=== PATIENT | male | born 1970 | race Caucasian/White ===

== ENCOUNTER 2017-01-09 19:04 | Observation (INO) | payer BC ==
[~2017-01-09] VITALS: Ht 198.1 cm; Wt 104.2 kg
[~2017-01-09 19:04] MED LIST: CRF1 PO; CYAN3INJ; FLV1; FLX10 PO; LANS30CA12; PNT250; RMCI; [UNRECOGNIZED DRUG - OTHER]
[2017-01-09] MEDS ORDERED: SODIUM CHLORIDE 0.9% 1000ML 1,000 ML IV STA (19:17)
[2017-01-09] MEDS ORDERED: ACETAMINOPHEN 500 MG TAB PO STA (19:30)
[2017-01-09] MEDS ORDERED: ONDANSETRON 8 MG/54 ML D5W IV STA (19:30)
[2017-01-09 19:36] LABS: URINE APPEARANCE CLEAR (CLEAR); URINE BILIRUBIN NEG (NEG); URINE COLOR YELLOW; URINE NITRITE NEG (NEG); URINE SPECIFIC GRAVITY 1.025 (1.000-1.030); UROBILINOGEN NEG (NEG); ZZUR CULT IF INDIC CLEAN CATCH NO
[2017-01-09 19:37] LABS: BASO % 0.1 %; BASO ABS # 0.01 K/uL (0-0.2); COMPLETE YES; EOS % 5.3 %; HEMATOCRIT 41.2 % (42-52); IG% 0.2 %; LYMPH % 11.5 %; LYMPH ABS # 1.12 K/uL (1.2-3.4); MEAN CELL VOLUME 81.3 fL (80-100); MEAN CORPUSCULAR HEMOGLOBIN 27.8 pg (25-34); MEAN CORPUSCULAR HGB CONC 34.2 g/dl (32-36); MEAN PLATELET VOLUME 9.8 fL (7.4-10.4); MONO % 4.5 %; NEUT % 78.4 %; PLATELET COUNT 236 K/uL (130-400); RED BLOOD COUNT 5.07 M/uL (4.7-6.1); WHITE BLOOD COUNT 9.73 K/uL (4.8-10.8)
[2017-01-09 19:39] LABS: MANUAL MICROSCOPIC REQUIRED? NO; REVIEW REQ? NO
[2017-01-09] MEDS: HYDROmorphone INJ 1 MG/ML SYR IV PRN ×2 (19:40→20:56)
[2017-01-09] MEDS ORDERED: RANI300T2 PO (19:59)
[2017-01-09] MEDS ORDERED: CYNI1000 INJ (19:59)
[2017-01-09] MEDS ORDERED: PNT500 PO (19:59)
[2017-01-09] MEDS ORDERED: ZOLP10TA PO (19:59)
[2017-01-09] MEDS ORDERED: FLV1 (19:59)
[2017-01-09] MEDS ORDERED: COLE1TAB PO (19:59)
[2017-01-09] MEDS ORDERED: BUDE1CAP6 PO (19:59)
[2017-01-09] MEDS ORDERED: CYCL10TA6 PO (19:59)
[2017-01-09] MEDS ORDERED: LANS30CA12 PO (19:59)
[2017-01-09] MEDS ORDERED: RMCI IN (19:59)
[2017-01-09] MEDS ORDERED: LOSA1TAB38 PO (19:59)
[2017-01-09] MEDS ORDERED: DOCU-94 PO (19:59)
[2017-01-09] MEDS ORDERED: DICY10CA55 PO (19:59)
[2017-01-09 20:02] LABS: BUN/CREATININE RATIO 18.8 (10-20); CALCIUM 8.6 mg/dl (8.5-10.1); CREATININE 1.1 mg/dl (0.60-1.40); POTASSIUM 3.6 mmol/L (3.5-5.1)
--- NOTE | 2017-01-09 20:27 | DIAGNOSTIC IMAGING REPORT ---
CT OF THE ABDOMEN AND PELVIS WITHOUT CONTRAST CLINICAL HISTORY: Left lower quadrant pain, fever and vomiting. Crohn's disease. COMPARISON STUDY: CT of the abdomen and pelvis July 20, 2007 and MR enterography August 20, 2016. TECHNIQUE: Axial images of the abdomen and pelvis were obtained without IV contrast. Images were reviewed in the axial, sagittal, and coronal planes. FINDINGS: Visualized portions of the ascending aorta demonstrate mild dilatation, measuring up to 4.2 cm. Evaluation of the abdomen and pelvis is suboptimal on this unenhanced exam. Unenhanced images of the liver, spleen, adrenal glands, left kidney and pancreas are normal. 2 water attenuation right renal lesions were shown to reflect cysts on prior MRI. There are stable post operative findings consistent with a right hemicolectomy. A gas and fluid containing bowel loop within the mid abdomen is at the anastomosis. There is no evidence for a bowel obstruction. There is no ascites. No abscess is present. There is no pneumatosis, free air or portal venous gas. No suspicious osseous lesions are present. IMPRESSION: 1. No acute process within the abdomen or pelvis on unenhanced exam. 2. Status post right hemicolectomy. No bowel obstruction. No bowel wall thickening identified. 3. Mild dilatation of visualized portions of the ascending aorta, measuring 4.2 cm. 4. Two right renal cysts. Electronically signed by: Jesús Campos M.D. 01/09/2017 8:26 PM Dictated Date/Time: 01/09/2017 8:17 PM
[2017-01-09] MEDS ORDERED: ONDANSETRON INJ 2 MG/ML 2 ML VIAL IV PRN (22:00)
[2017-01-09] MEDS ORDERED: ZOLPIDEM TARTRATE 5 MG TAB PO PRN (22:00)
[2017-01-09] MEDS ORDERED: MoRPHine SULFATE 4 MG/ML 1 ML CARP\\VIAL IV PRN (22:00)
[2017-01-09] MEDS ORDERED: ZOLPIDEM TARTRATE 10 MG TAB PO PRN (22:00)
[2017-01-09] MEDS ORDERED: ACETAMINOPHEN 325 MG TAB PO PRN (22:00)
[2017-01-09] MEDS ORDERED: MoRPHine SULFATE 2 MG/ML CARP IV PRN (22:00)
[2017-01-09] MEDS ORDERED: CYCLOBENZAPRINE HCL 10 MG TAB PO PRN (22:00)
[2017-01-09] MEDS ORDERED: MoRPHine SULFATE 2 MG/ML CARP ONE (22:32)
[2017-01-09] MEDS ORDERED: ONDANSETRON INJ 2 MG/ML 2 ML VIAL ONE (22:32)
[2017-01-09 23:28] VITALS: BP 123/64; PULSE 85; TEMP 36.7; O2SAT 96; Ht 198.1 cm; Wt 104.2 kg
[2017-01-10] MEDS ORDERED: IV FLUIDS COMPLETED PRN (01:00)
[2017-01-10] MEDS: NSS + 20MEQ KCL 1000ML 1,000 ML IV SCH ×2 (01:13→14:10)
--- NOTE | 2017-01-10 01:26 | EMERGENCY ROOM VISIT NOTE ---
History Report prepared by Dana: Mazin Cruz Under the Supervision of: Dr. Mj Guaman M.D. First contact with patient: 19:17 Chief Complaint: GI ASSESSMENT Stated Complaint: NAKIA THINKS HE MIGHT HAVE OBSTRUCTION/FEVER History of Present Illness The patient is a 46 year old male who presents to the Emergency Room with complaints of waxing and waning left lower quadrant abdominal pain that began today at 1600, 3.5 hours prior to arrival. The patient rates his current pain as a 5/10 in severity, but states that it can be an 8/10 in severity when it worsens. He is also complaining of a fever, headache, diffuse joint pain, and has been dry-heaving today. The patient does have a history of Crohn's Disease, but has also been having some liquid stools over the past couple of days which are not normal for him. He has had some bloody stools over the last week, which he has not seen with his Crohn's for several months. The patient commonly takes Remicade, Pentasa, and Entocort. He has recently been advised to stop taking the Entocort by his GI doctor. Patient denies LOC, diaphoresis, visual changes, neck pain, chest pain, breathing difficulties, nausea, back pain, hematochezia, urinary symptoms, numbness, weakness, lymphadenopathy, rash, or other complaints. 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 A total of ten systems were reviewed and were otherwise negative. Past Medical & Surgical Medical Problems: (1) Crohn disease (2) Intractable left lower quadrant abdominal pain Surgical Problems: (1) S/P partial colectomy Family History Cancer Hypertension Social History Smoking Status: Never Smoker Marital Status: Housing Status: lives with family Occupation Status: employed Current/Historical Medications Scheduled Budesonide (Entocort Ec), 3 MG PO DAILY Colestipol Hcl (Colestid), 1 GM PO BID Cyanocobalamin (Cyanocobalamin), 1 ML INJ MONTHLY Dicyclomine Hcl (Bentyl), 10 MG PO HS Docusate Sodium (Colace), 1 CAP PO BID Folic Acid (Folic Acid), 1 MG DAILY Infliximab (Remicade), 100 MG IN Q6WKS Lansoprazole (Prevacid), 30 MG PO BID Losartan Potassium (Cozaar), 100 MG PO DAILY Mesalamine (Pentasa), 4 TABS PO AMPM Ranitidine (Zantac), 300 MG PO HS Scheduled PRN Cyclobenzaprine Hcl (Flexeril), 10 MG PO TID PRN for Muscle Spasms Zolpidem Tartrate (Ambien), 10 MG PO HS PRN for Sleep Allergies Coded Allergies: Iodinated Diagnostic Agents (Verified Allergy, Unknown, ., 10/16/15) Physical Exam Vital Signs Date Time Temp Pulse Resp B/P Pulse Ox O2 Delivery O2 Flow Rate FiO2 01/09/17 20:31 37.3 85 18 111/70 96 Room Air 01/09/17 19:08 38.2 81 18 127/75 100 Room Air Physical Exam GENERAL: Awake, alert, well-appearing, in no distress HENT: Normocephalic, atraumatic. Oropharynx unremarkable. EYES: Normal conjunctiva. Sclera non-icteric. NECK: Supple. No nuchal rigidity. FROM. No JVD. RESPIRATORY: Clear to auscultation. CARDIAC: Borderline tachycardiac rate, normal rhythm. Extremities warm and well perfused. Pulses equal. ABDOMEN: Soft, non-distended. LLQ tenderness to palpation. No rebound or guarding. No masses. RECTAL: Deferred. MUSCULOSKELETAL: Chest examination reveals no tenderness. The back is symmetrical on inspection without obvious abnormality. There is no CVA tenderness to palpation. No joint edema. LOWER EXTREMITIES: Calves are equal size bilaterally and non-tender. No edema. No discoloration. NEURO: Normal sensorium. No sensory or motor deficits noted. SKIN: No rash or jaundice noted. Medical Decision & Procedures ER Provider Diagnostic Interpretation: X ray results as stated below per my interpretation and radiologist interpretation. Other radiology results as stated below per my review and radiologist interpretation CT OF THE ABDOMEN AND PELVIS WITHOUT CONTRAST CLINICAL HISTORY: Left lower quadrant pain, fever and vomiting. Crohn's disease. COMPARISON STUDY: CT of the abdomen and pelvis July 20, 2007 and MR enterography August 20, 2016. TECHNIQUE: Axial images of the abdomen and pelvis were obtained without IV contrast. Images were reviewed in the axial, sagittal, and coronal planes. FINDINGS: Visualized portions of the ascending aorta demonstrate mild dilatation, measuring up to 4.2 cm. Evaluation of the abdomen and pelvis is suboptimal on this unenhanced exam. Unenhanced images of the liver, spleen, adrenal glands, left kidney and pancreas are normal. 2 water attenuation right renal lesions were shown to reflect cysts on prior MRI. There are stable post operative findings consistent with a right hemicolectomy. A gas and fluid containing bowel loop within the mid abdomen is at the anastomosis. There is no evidence for a bowel obstruction. There is no ascites. No abscess is present. There is no pneumatosis, free air or portal venous gas. No suspicious osseous lesions are present. IMPRESSION: 1. No acute process within the abdomen or pelvis on unenhanced exam. 2. Status post right hemicolectomy. No bowel obstruction. No bowel wall thickening identified. 3. Mild dilatation of visualized portions of the ascending aorta, measuring 4.2 cm. 4. Two right renal cysts. Electronically signed by: Jesús Campos M.D. 01/09/2017 8:26 PM Dictated Date/Time: 01/09/2017 8:17 PM Laboratory Results 01/09/17 19:25 Red Blood Count 5.07, Mean Corpuscular Volume 81.3, Mean Corpuscular Hemoglobin 27.8, Mean Corpuscular Hemoglobin Concent 34.2, Mean Platelet Volume 9.8, Neutrophils (%) (Auto) 78.4, Lymphocytes (%) (Auto) 11.5, Monocytes (%) (Auto) 4.5, Eosinophils (%) (Auto) 5.3, Basophils (%) (Auto) 0.1, Neutrophils # (Auto) 7.62, Lymphocytes # (Auto) 1.12, Monocytes # (Auto) 0.44, Eosinophils # (Auto) 0.52, Basophils # (Auto) 0.01 01/09/17 19:25 Test 01/09/17 19:20 01/09/17 19:25 Urine Color YELLOW Urine Appearance CLEAR (CLEAR) Urine pH 5.0 (4.5-7.5) Urine Specific [place] 1.025 (1.000-1.030) Urine Protein NEG (NEG) Urine Glucose (UA) NEG (NEG) Urine Ketones NEG (NEG) Urine Occult Blood NEG (NEG) Urine Nitrite NEG (NEG) Urine Bilirubin NEG (NEG) Urine Urobilinogen NEG (NEG) Urine Leukocyte Esterase NEG (NEG) White Blood Count 9.73 K/uL (4.8-10.8) Red Blood Count 5.07 M/uL (4.7-6.1) Hemoglobin 14.1 g/dL (14.0-18.0) Hematocrit 41.2 % (42-52) Mean Corpuscular Volume 81.3 fL (80-100) Mean Corpuscular Hemoglobin 27.8 pg (25-34) Mean Corpuscular Hemoglobin Concent 34.2 g/dl (32-36) Platelet Count 236 K/uL (130-400) Mean Platelet Volume 9.8 fL (7.4-10.4) Neutrophils (%) (Auto) 78.4 % Lymphocytes (%) (Auto) 11.5 % Monocytes (%) (Auto) 4.5 % Eosinophils (%) (Auto) 5.3 % Basophils (%) (Auto) 0.1 % Neutrophils # (Auto) 7.62 K/uL (1.4-6.5) Lymphocytes # (Auto) 1.12 K/uL (1.2-3.4) Monocytes # (Auto) 0.44 K/uL (0.11-0.59) Eosinophils # (Auto) 0.52 K/uL (0-0.5) Basophils # (Auto) 0.01 K/uL (0-0.2) RDW Standard Deviation 37.1 fL (36.4-46.3) RDW Coefficient of Variation 12.7 % (11.5-14.5) Immature Granulocyte % (Auto) 0.2 % Immature Granulocyte # (Auto) 0.02 K/uL (0.00-0.02) Anion Gap 9.0 mmol/L (3-11) Est Creatinine Clear Calc Drug Dose 107.3 ml/min Estimated GFR () 92.2 Estimated GFR (Non- 79.5 BUN/Creatinine Ratio 18.8 (10-20) Calcium Level 8.6 mg/dl (8.5-10.1) Total Bilirubin 0.4 mg/dl (0.2-1) Direct Bilirubin 0.1 mg/dl (0-0.2) Aspartate Amino Transf (AST/SGOT) 12 U/L (15-37) Alanine Aminotransferase (ALT/SGPT) 26 U/L (12-78) Alkaline Phosphatase 70 U/L (45-117) Total Protein 7.9 gm/dl (6.4-8.2) Albumin 4.0 gm/dl (3.4-5.0) Lipase 130 U/L (73-393) Laboratory results reviewed by me Medications Administered Medications (Trade) Dose Ordered Sig/Rafia Route Start Time Stop Time Status Last Admin Dose Admin Sodium Chloride (Nss 1000ml) 1,000 ml @ 999 mls/hr Q1H1M STAT IV 01/09/17 19:17 01/09/17 20:17 DC 01/09/17 19:17 999 MLS/HR Acetaminophen (Tylenol Tab) 1,000 mg NOW STAT PO 01/09/17 19:30 01/09/17 19:32 DC 01/09/17 19:41 1,000 MG Ondansetron HCl (Zofran 8mg Iv) 8 mg NOW STAT IV 01/09/17 19:30 01/09/17 19:32 DC 01/09/17 19:40 8 MG Hydromorphone HCl (Dilaudid Inj) 1 mg Q15M PRN IV 01/09/17 19:30 01/09/17 23:31 DC 01/09/17 20:56 1 MG ED Course 1916: Ordered Sodium Chloride 1000 mL @ 999 mL/hr IV. 1926: The patient was evaluated in room C8. A complete history and physical exam was performed. 1929: Ordered Dilaudid 1 mg IV, Zofran 8 mg IV, Tylenol 1000 mg PO. 2056: I discussed the case with Dr. Murphy - [facility] [place], he will evaluate the patient for further treatment. Medical Decision Triage Nursing notes reviewed. The patient's presentation and history were concerning for abdominal pain. Etiologies such as inflammatory bowel disease, diverticulitis, obstruction, renal colic, PUD, biliary pathology, pancreatitis, mesenteric ischemia, aortic pathology, infections, genitourinary, UTI, perforated viscus, as well as others were entertained. The patient was evaluated. He was uncomfortable. He had tenderness in the left lower quadrant. He was febrile. The patient was hydrated. He was given Tylenol Zofran, and Dilaudid. The patient had blood work obtained. He was sent for CT imaging. His blood work and urinalysis were unremarkable. The patient's CT imaging did not reveal any obvious findings. His loops of bowel seems somewhat prominent. The patient does have a history of obstruction. On reassessment the patient was still uncomfortable. He had received several doses of IV pain medicine for comfort. Given his history further evaluation and management in the hospital was felt to be appropriate. Consultation was made with internal medicine. The patient was evaluated for further treatment. The chart was completed utilizing [employer] Speech voice recognition software. Grammatical errors, random word insertions, pronoun errors, and incomplete sentences are an occasional consequence of this system due to software limitations, ambient noise, and hardware issues. Any formal questions or concerns about the content, text, or information contained within the body of this dictation should be directly addressed to the physician for clarification. Consults Time Called: 2053 Consulting Physician: Dr. Katherine HAMM Hospitalist Returned Call: 2053 I discussed the case with Dr. Katherine HAMM Hospitaljanel, he will evaluate the patient for further treatment. Impression Primary Impression: LLQ abdominal pain Additional Impression: Fever Scribe Attestation The scribe's documentation has been prepared under my direction and personally reviewed by me in its entirety. I confirm that the note above accurately reflects all work, treatment, procedures, and medical decision making performed by me. Departure Information Dispostion Being Evaluated By Hospitalist Referrals Nanette Melo MD (PCP) Patient Instructions [facility] Problem Qualifiers
[2017-01-10] MEDS ORDERED: NURSING VERBAL MED ORDER ONE (02:00)
--- NOTE | 2017-01-10 05:09 | History and Physical ---
History & Physical Date & Time of Service: Jan 10, 2017 at 05:00. The patient was examined on 01/09/2017. Chief Complaint: Crohns,Intractable Llq Abd Pain Primary Care Physician: Nanette Melo MD History of Present Illness Source: patient, friend The patient is a 46-year-old male who presents to the emergency department with left lower quadrant pain on and off that began about 3.5 hours prior to arrival. He is also developed a fever, headache, mild diffuse joint pain and was dry heaving earlier in the day. He does have a history Crohn's disease, but this is not typical of any flare. He does report having had some bloody stools over the last week. Upon dietary review, the patient did purchase and eat an egg salad sandwich at a quick eating place, and his symptoms developed about one hour afterwards. Past Medical/Surgical History Medical Problems: (1) Crohn disease Status: Chronic Surgical Problems: (1) S/P partial colectomy Status: Resolved Family History Cancer Hypertension Social History Smoking Status: Never Smoker Smokeless Tobacco Use: No Alcohol Use: none Drug Use: none Marital Status: Housing status: lives with family Occupational Status: employed Multi-Drug Resistant Organisms History of MDRO: No Allergies Coded Allergies: Iodinated Diagnostic Agents (Verified Allergy, Unknown, ., 10/16/15) Home Medications Scheduled Budesonide (Entocort Ec), 3 MG PO DAILY Colestipol Hcl (Colestid), 1 GM PO BID Cyanocobalamin (Cyanocobalamin), 1 ML INJ MONTHLY Dicyclomine Hcl (Bentyl), 10 MG PO HS Docusate Sodium (Colace), 1 CAP PO BID Folic Acid (Folic Acid), 1 MG DAILY Infliximab (Remicade), 100 MG IN Q6WKS Lansoprazole (Prevacid), 30 MG PO BID Losartan Potassium (Cozaar), 100 MG PO DAILY Mesalamine (Pentasa), 4 TABS PO AMPM Ranitidine (Zantac), 300 MG PO HS Scheduled PRN Cyclobenzaprine Hcl (Flexeril), 10 MG PO TID PRN for Muscle Spasms Zolpidem Tartrate (Ambien), 10 MG PO HS PRN for Sleep Review of Systems The patient denies chest pain, palpitations, shortness of breath, cough, lower extremity swelling, vision change, hearing change, sore throat, pelvic pain, blood in urine, dysuria, urinary frequency or urgency, memory loss, rash, abnormal bruising or bleeding, imbalance, focal or generalized weakness, numbness or tingling in arms or legs, back or neck pain, night sweats, or allergy symptoms. The review of systems is otherwise negative other than for that already noted above, and at least 10 systems have been reviewed. Physical Exam Vital Signs Date Time Temp Pulse Resp B/P Pulse Ox O2 Delivery O2 Flow Rate FiO2 01/10/17 00:00 Room Air 01/09/17 23:28 36.7 85 16 123/64 96 Room Air 01/09/17 22:20 36.9 93 18 135/74 96 Room Air 01/09/17 20:31 37.3 85 18 111/70 96 Room Air 01/09/17 19:08 38.2 81 18 127/75 100 Room Air The patient is awake, well-developed and adequately nourished, alert and oriented 3, normocephalic and atraumatic, lying in bed and in no acute distress. HEENT--PERRL, EOMI, mucous membranes and oropharynx dry. Neck--supple, no JVD or bruits, thyroid normal, trachea midline, no adenopathy. Heart--normal S1 and S2, no extra beats, no murmurs, rubs or gallops. Lungs--clear bilaterally with good air movement, no respiratory distress, no accessory muscle use. Abdomen--normal bowel sounds and soft, mild tenderness left lower quadrant with palpation, nondistended, no hernias or masses, no organomegaly. Extremities--no cyanosis, clubbing or edema. There are good distal pulses b/l. Dermatologic--normal skin turgor, normal color, warm and dry, no abnormal lymph nodes, no rash. Neurologic--cranial nerves II through XII grossly intact, motor and sensory examination normal. Rheumatologic--normal range of motion, nontender, muscles and joints. Psychiatric--normal affect. Diagnostics Laboratory Results Results Past 24 Hours Test 01/09/17 19:20 01/09/17 19:25 01/10/17 04:44 Range/Units Urine Color YELLOW Urine Appearance CLEAR CLEAR Urine pH 5.0 4.5-7.5 Urine Specific [place] 1.025 1.000-1.030 Urine Protein NEG NEG Urine Glucose (UA) NEG NEG Urine Ketones NEG NEG Urine Occult Blood NEG NEG Urine Nitrite NEG NEG Urine Bilirubin NEG NEG Urine Urobilinogen NEG NEG Urine Leukocyte Esterase NEG NEG White Blood Count 9.73 4.8-10.8 K/uL Red Blood Count 5.07 4.7-6.1 M/uL Hemoglobin 14.1 14.0-18.0 g/dL Hematocrit 41.2 42-52 % Mean Corpuscular Volume 81.3 80-100 fL Mean Corpuscular Hemoglobin 27.8 25-34 pg Mean Corpuscular Hemoglobin Concent 34.2 32-36 g/dl Platelet Count 236 130-400 K/uL Mean Platelet Volume 9.8 7.4-10.4 fL Neutrophils (%) (Auto) 78.4 % Lymphocytes (%) (Auto) 11.5 % Monocytes (%) (Auto) 4.5 % Eosinophils (%) (Auto) 5.3 % Basophils (%) (Auto) 0.1 % Neutrophils # (Auto) 7.62 1.4-6.5 K/uL Lymphocytes # (Auto) 1.12 1.2-3.4 K/uL Monocytes # (Auto) 0.44 0.11-0.59 K/uL Eosinophils # (Auto) 0.52 0-0.5 K/uL Basophils # (Auto) 0.01 0-0.2 K/uL RDW Standard Deviation 37.1 36.4-46.3 fL RDW Coefficient of Variation 12.7 11.5-14.5 % Immature Granulocyte % (Auto) 0.2 % Immature Granulocyte # (Auto) 0.02 0.00-0.02 K/uL Sodium Level 140 136-145 mmol/L Potassium Level 3.6 3.5-5.1 mmol/L Chloride Level 107 98-107 mmol/L Carbon Dioxide Level 24 21-32 mmol/L Anion Gap 9.0 3-11 mmol/L Blood Urea Nitrogen 21 7-18 mg/dl Creatinine 1.10 0.60-1.40 mg/dl Est Creatinine Clear Calc Drug Dose 107.3 ml/min Estimated GFR () 92.2 Estimated GFR (Non- 79.5 BUN/Creatinine Ratio 18.8 10-20 Random Glucose 106 70-99 mg/dl Calcium Level 8.6 8.5-10.1 mg/dl Total Bilirubin 0.4 0.2-1 mg/dl Direct Bilirubin 0.1 0-0.2 mg/dl Aspartate Amino Transf (AST/SGOT) 12 15-37 U/L Alanine Aminotransferase (ALT/SGPT) 26 12-78 U/L Alkaline Phosphatase 70 45-117 U/L Total Protein 7.9 6.4-8.2 gm/dl Albumin 4.0 3.4-5.0 gm/dl Lipase 130 73-393 U/L Diagnostic Radiology Patient Name: GREGORY REAGAN Unit Number: [id number] Dictated: 01/09/172016 Transcribed: 01/09/172016 KRYSTIAN Printed Date/Time: [~ rep prt dt]/[~ rep prt tm] [~ rep ct labl] - [~ rep ct ivnm] [facility] [place] [address] Dictated: 01/09/172016 Transcribed: 01/09/172016 JA Printed Date/Time: [~ rep prt dt]/[~ rep prt tm] [~ rep ct labl] - [~ rep ct ivnm] [~ rep ct add3]] CT OF THE ABDOMEN AND PELVIS WITHOUT CONTRAST CLINICAL HISTORY: Left lower quadrant pain, fever and vomiting. Crohn's disease. COMPARISON STUDY: CT of the abdomen and pelvis July 20, 2007 and MR enterography August 20, 2016. TECHNIQUE: Axial images of the abdomen and pelvis were obtained without IV contrast. Images were reviewed in the axial, sagittal, and coronal planes. FINDINGS: Visualized portions of the ascending aorta demonstrate mild dilatation, measuring up to 4.2 cm. Evaluation of the abdomen and pelvis is suboptimal on this unenhanced exam. Unenhanced images of the liver, spleen, adrenal glands, left kidney and pancreas are normal. 2 water attenuation right renal lesions were shown to reflect cysts on prior MRI. There are stable post operative findings consistent with a right hemicolectomy. A gas and fluid containing bowel loop within the mid abdomen is at the anastomosis. There is no evidence for a bowel obstruction. There is no ascites. No abscess is present. There is no pneumatosis, free air or portal venous gas. No suspicious osseous lesions are present. IMPRESSION: 1. No acute process within the abdomen or pelvis on unenhanced exam. 2. Status post right hemicolectomy. No bowel obstruction. No bowel wall thickening identified. 3. Mild dilatation of visualized portions of the ascending aorta, measuring 4.2 cm. 4. Two right renal cysts. Electronically signed by: Jesús Campos M.D. 01/09/2017 8:26 PM Dictated Date/Time: 01/09/2017 8:17 PM The status of this report is Signed. Draft = Not yet reviewed or approved by Radiologist. Signed = Reviewed and approved by Radiologist. <AttendingPhy></AttendingPhy> <FamilyPhy>Nanette Melo MD</FamilyPhy> < PrimaryPhy>Nanette Melo MD</PrimaryPhy> <UnitNumber>[id number]</UnitNumber > <VisitNumber>[id number]</VisitNumber> <PatientName>TEZGREGORY</ PatientName> <DateOfBirth>1970</DateOfBirth> <Location>[facility]</Location> < ServiceDate>01/09/17</ServiceDate> <MNE>ESINDI</MNE> <OrderingPhy>Mj Guaman MD</OrderingPhy> <OrderingPhyMNE>f rep ord dr fitzpatrick</OrderingPhyMNE> < DictatingPhyMNE>f rep dict dr fitzpatrick</DictatingPhyMNE> <CCListMNE>f rep ct nanette</ CCListMNE> <AdmittingPhyMNE>f pt admit dr fitzpatrick</AdmittingPhyMNE> <AttendingPhyMNE >f pt attend dr fitzpatrick</AttendingPhyMNE> <ConsultingPhyMNE>f pt consult dr fitzpatrick</ConsultingPhyMNE> <FamilyPhyMNE>f pt fam dr fitzpatrick</FamilyPhyMNE> <OtherPhyMNE>f pt other dr fitzpatrick</OtherPhyMNE> < PrimaryPhyMNE>f pt prim care dr fitzpatrick</PrimaryPhyMNE> <ReferringPhyMNE>f pt referring dr fitzpatrick</ReferringPhyMNE> Impression Assessment and Plan Crohn's disease/left lower quadrant pain/possible toxin induced food poisoning-- the patient will be admitted to the medical floor on a full liquid diet. We'll continue his usual medications of Entocort EC, dicyclomine, mesalamine. We'll hold colestipol and Colace. He will be due for Remicade next week. We'll place on normal saline with potassium chloride 20 mEq at 75 ML's per hour. Repeat laboratories in the a.m. Zofran 4 mg IV every 6 hours when necessary. GERD--change Prevacid 30 mg by mouth twice a day to pantoprazole 40 mg by mouth twice a day and continue ranitidine 300 mg by mouth at bedtime. Hypertension--continue losartan 100 mg by mouth daily with hold parameters. Level of Care Med/Surg Advanced Directives Existing Advance Directive: No Existing Living Will: No Existing Power of Manager Flight Operations: No Resuscitation Status FULL RESUSCITATION VTE Prophylaxis VTE Risk Assessment Done? Y/N: Yes Risk Level: Very Low Given or contraindicated: SCD's Social Service Consult None Apply
[2017-01-10 07:32] VITALS: BP 117/72; PULSE 73; TEMP 36.5; O2SAT 98
[2017-01-10 07:48] LABS: BASO % 0.4 %; BASO ABS # 0.02 K/uL (0-0.2); COMPLETE YES; EOS % 12.5 %; HEMATOCRIT 38.4 % (42-52); IG% 0.2 %; LYMPH % 18.8 %; LYMPH ABS # 1.05 K/uL (1.2-3.4); MEAN CELL VOLUME 82.9 fL (80-100); MEAN CORPUSCULAR HEMOGLOBIN 27.4 pg (25-34); MEAN CORPUSCULAR HGB CONC 33.1 g/dl (32-36); MEAN PLATELET VOLUME 9.5 fL (7.4-10.4); MONO % 19.3 %; NEUT % 48.8 %; PLATELET COUNT 213 K/uL (130-400); RED BLOOD COUNT 4.63 M/uL (4.7-6.1); WHITE BLOOD COUNT 5.59 K/uL (4.8-10.8)
[2017-01-10 08:21] LABS: BUN/CREATININE RATIO 18.9 (10-20); CREATININE 0.99 mg/dl (0.60-1.40); POTASSIUM 3.7 mmol/L (3.5-5.1)
--- NOTE | 2017-01-10 08:51 | Progress Note ---
Subjective Date of Service: Jan 10, 2017. Subjective Pt evaluation today including: conversation w/ patient, physical exam, chart review, lab review, review of studies, review of inpatient medication list Still complaining has diarrhea x1 , is about 100 ml, brown liquid stool, no more abdominal pain, no blood in the stool, tolerate some oatmeal breakfast first, no nausea No fever, but reportedly was having fever up to 101 prior to arrival to the hospital, generally feeling better Problem List Medical Problems: (1) Fever Status: Acute (2) LLQ abdominal pain Status: Acute Review of Systems Constitutional: + weakness, No chills, No fatigue, No fever, No problem reported, No sweats, No weight loss Eyes: No diplopia, No discharge, No eye pain, No redness, No worsening of vision ENT: No dental problems, No hearing loss, No nasal symptoms, No sore throat, No tinnitus, No trouble swallowing, No unusual epistaxis Respiratory: No cough, No dyspnea at rest, No dyspnea on exertion, No hemoptysis, No shortness of breath, No sputum, No wheezing Cardiac: No PND, No chest pain, No claudication, No edema, No orthopnea, No palpitations Abdomen: + diarrhea, No constipation, No nausea, No pain, No vomiting Musculoskeletal: No calf pain, No joint pain, No muscle pain, No swelling Male : No dysuria, No hematuria, No incontinence, No nocturia more than once/ night, No slowing stream, No urinary frequency Neurologic: No balance problems, No memory loss, No numbness/tingling, No paralysis, No vertigo, No weakness Psychiatric: No anhedonism, No anxiety, No depression symptoms, No insomnia, No substance abuse Heme: No abnormal bleeding/bruising, No clotting problems, No night sweats, No swollen lymph nodes Endo: No excessive thirst, No excessive urination, No fatigue Skin: No bleeding, No color change, No itch, No new/changing skin lesions, No rash Objective Vital Signs Date Time Temp Pulse Resp B/P Pulse Ox O2 Delivery O2 Flow Rate FiO2 01/10/17 07:32 36.5 73 18 117/72 98 Room Air 01/10/17 00:00 Room Air 01/09/17 23:28 36.7 85 16 123/64 96 Room Air 01/09/17 22:20 36.9 93 18 135/74 96 Room Air 01/09/17 20:31 37.3 85 18 111/70 96 Room Air 01/09/17 19:08 38.2 81 18 127/75 100 Room Air Physical Exam General Appearance: WD/WN, no apparent distress Eyes: normal inspection, PERRL, EOMI, sclerae normal ENT: normal ENT inspection, hearing grossly normal, pharynx normal Neck: supple, no adenopathy, thyroid normal, no JVD, no carotid bruits, trachea midline Respiratory/Chest: chest non-tender, lungs clear, normal breath sounds, no respiratory distress, no accessory muscle use Cardiovascular: regular rate, rhythm, no edema, no gallop, no JVD, no murmur Abdomen: normal bowel sounds, non tender, soft, no organomegaly, no pulsatile mass Extremities: normal range of motion, non-tender, normal inspection, no pedal edema, no calf tenderness, normal capillary refill, pelvis stable Neurologic/Psychiatric: 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-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 nml as tested, no motor/sensory deficits, alert, normal mood/affect, oriented x 3 Skin: normal color, warm/dry, no rash Lymphatic: no adenopathy Laboratory Results Last 24 Hours Test 01/09/17 19:20 01/09/17 19:25 01/10/17 07:22 01/10/17 08:34 Urine Color YELLOW Urine Appearance CLEAR Urine pH 5.0 Urine Specific [place] 1.025 Urine Protein NEG Urine Glucose (UA) NEG Urine Ketones NEG Urine Occult Blood NEG Urine Nitrite NEG Urine Bilirubin NEG Urine Urobilinogen NEG Urine Leukocyte Esterase NEG White Blood Count 9.73 K/uL 5.59 K/uL Red Blood Count 5.07 M/uL 4.63 M/uL Hemoglobin 14.1 g/dL 12.7 g/dL Hematocrit 41.2 % 38.4 % Mean Corpuscular Volume 81.3 fL 82.9 fL Mean Corpuscular Hemoglobin 27.8 pg 27.4 pg Mean Corpuscular Hemoglobin Concent 34.2 g/dl 33.1 g/dl Platelet Count 236 K/uL 213 K/uL Mean Platelet Volume 9.8 fL 9.5 fL Neutrophils (%) (Auto) 78.4 % 48.8 % Lymphocytes (%) (Auto) 11.5 % 18.8 % Monocytes (%) (Auto) 4.5 % 19.3 % Eosinophils (%) (Auto) 5.3 % 12.5 % Basophils (%) (Auto) 0.1 % 0.4 % Neutrophils # (Auto) 7.62 K/uL 2.73 K/uL Lymphocytes # (Auto) 1.12 K/uL 1.05 K/uL Monocytes # (Auto) 0.44 K/uL 1.08 K/uL Eosinophils # (Auto) 0.52 K/uL 0.70 K/uL Basophils # (Auto) 0.01 K/uL 0.02 K/uL RDW Standard Deviation 37.1 fL 38.9 fL RDW Coefficient of Variation 12.7 % 12.9 % Immature Granulocyte % (Auto) 0.2 % 0.2 % Immature Granulocyte # (Auto) 0.02 K/uL 0.01 K/uL Sodium Level 140 mmol/L 140 mmol/L Potassium Level 3.6 mmol/L 3.7 mmol/L Chloride Level 107 mmol/L 107 mmol/L Carbon Dioxide Level 24 mmol/L 26 mmol/L Anion Gap 9.0 mmol/L 7.0 mmol/L Blood Urea Nitrogen 21 mg/dl 19 mg/dl Creatinine 1.10 mg/dl 0.99 mg/dl Est Creatinine Clear Calc Drug Dose 107.3 ml/min 119.2 ml/min Estimated GFR () 92.2 104.7 Estimated GFR (Non- 79.5 90.3 BUN/Creatinine Ratio 18.8 18.9 Random Glucose 106 mg/dl 85 mg/dl Calcium Level 8.6 mg/dl 8.0 mg/dl Total Bilirubin 0.4 mg/dl Direct Bilirubin 0.1 mg/dl Aspartate Amino Transf (AST/SGOT) 12 U/L Alanine Aminotransferase (ALT/SGPT) 26 U/L Alkaline Phosphatase 70 U/L Total Protein 7.9 gm/dl Albumin 4.0 gm/dl Lipase 130 U/L Magnesium Level 2.0 mg/dl Assessment and Plan 46-year-old admitted because of diarrhea and left lower quadrant pain on and off that began about 3.5 hours prior to arrival. History of Crohn disease Per report, He had diarrhea and left lower quadrant pain , and a fever, headache, mild diffuse joint pain and was dry heaving earlier prior to the admission he does have a history Crohn's disease, but this is not typical of any flare. His GI doctor is in [facility] and [facility] , locally follow-up [facility] Dr. Alonso. dennis GI He does report having had some bloody stools over the last week. the patient did purchase and eat an egg salad sandwich at a quick eating place, and his symptoms developed about one hour afterwards. Diarrhea likely from food poisoning, stable anymore improve Crohn's disease/history of hemicolectomy in the left side Stool sample sent for culture, C. difficile, and Hemoccult continue his usual medications of Entocort EC, dicyclomine, mesalamine. Continue hold colestipol and Colace. He will be due for Remicade next week. Continue IV fluid and follow-up labs We'll request an local GI consult GERD- Hypertension Stable continue current medication GI and DVT prophylaxis is covered Continued [facility] stay due to: multiple IV medications needed Discharge planning: home
[2017-01-10] MEDS ORDERED: PANTOprazole SOD 40 MG TAB PO SCH (09:00)
[2017-01-10] MEDS ORDERED: MESALAMINE 250 MG CAPCR PO SCH (09:00)
[2017-01-10] MEDS ORDERED: BUDESONIDE EC 3 MG CAP PO SCH (09:00)
[2017-01-10] MEDS ORDERED: COLESTIPOL HCL 1 GM TAB PO SCH (10:00)
--- NOTE | 2017-01-10 13:51 | Discharge Instructions ---
Discharge Instructions Date of Service Jan 10, 2017. Admission Reason for Admission: Crohns,Intractable Llq Abd Pain Discharge Discharge Diagnosis / Problem: diarrhea and left lower quadrant pain Discharge Goals Goal(s): Decrease discomfort, Improve function, Increase independence, Improve disease control, Learn about illness, Diagnostic testing, Therapeutic intervention, Prevent Disease Progression, Specific goals Activity Recommendations Activity Limitations: resume your previous activity . Instructions / Follow-Up Instructions / Follow-Up you have diarrhea and left lower quadrant pain you have History of Crohn disease Because your complex medical conditions I was planning to keep you in the hospital overnight, however you really want to go home with all risks by self which include condition getting worse and need to back to the emergency., etc. you have history Crohn's disease,your GI doctors included in [facility], [facility] , and [facility] Dr. Wood. dennis GI , I recommend to keep appointment with Dr. Wood Recommended back to the emergency room if any condition getting worse - you need to follow up with your primary care physician in 1 week, - take medication as instructed, never overdose or any misuse, or take with alcohol, because misuse of medicine may cause organ damage or , call your primary care physician if have questions of medicaitons. - call your primary care physician OR go to local emergency room if has any fever/chill, chest pain, shortness of breathing, nausea/vomiting/abdominal pain , facial droop/slurry speech/local weakness, or if has any questions. - fall precaution - diet as instructed - you need to follow up with your subspecialist - you should understand that it is important to follow up the above instruction , and "not following the above instruction" may cause delayed or missed care of your medical conditions which may cause permanent organ damage and even . Current Hospital Diet Patient's current hospital diet: Low Lactose Diet, Regular Diet Discharge Diet Recommended Diet: Regular Diet Pending Studies Studies pending at discharge: no Medical Emergencies . Who to Call and When: Medical Emergencies: If at any time you feel your situation is an emergency, please call 911 immediately. . Non-Emergent Contact Non-Emergency issues call your: Primary Care Provider, [employer] . . "Provider Documentation" section prepared by Carlos Cui. VTE Core Measure Inpt VTE Proph given/why not?: SCD's
--- NOTE | 2017-01-10 14:01 | Discharge Summary ---
Discharge Summary Date of Service Jan 10, 2017. Discharge Summary Admission Date: Jan 09, 2017 at 21:55 Discharge Date: Jan 10, 2017 Discharge Disposition: Home Principal Diagnosis: diarrhea and left lower quadrant pain Problems/Secondary Diagnoses: History of Crohn disease Procedures: No Consultations: [facility] with Dr. Lawton Medication Reconciliation Continued Medications: Budesonide (Entocort Ec) 3 Mg Cap 3 MG PO DAILY for 30 Days, #30 CAP 2 Refills Colestipol Hcl (Colestid) 1 Gm Tab 1 GM PO BID, TAB Cyanocobalamin (Cyanocobalamin) 1,000 Mcg/Ml Inj 1 ML INJ MONTHLY Cyclobenzaprine Hcl (Flexeril) 10 Mg Tab 10 MG PO TID PRN for Muscle Spasms, #21 TAB Dicyclomine Hcl (Bentyl) 10 Mg Cap 10 MG PO HS, CAP Docusate Sodium (Colace) 100 Mg Cap 1 CAP PO BID for 15 Days, #30 CAP Folic Acid (Folic Acid) 1 Mg Tab 1 MG DAILY Infliximab (Remicade) 100 Mg/10 Ml Inj 100 MG IN Q6WKS Lansoprazole (Prevacid) 30 Mg Capcr 30 MG PO BID, CAP Losartan Potassium (Cozaar) 100 Mg Tab 100 MG PO DAILY, TAB Mesalamine (Pentasa) 500 Mg Caper 4 TABS PO AMPM, CAP Ranitidine (Zantac) 300 Mg Tab 300 MG PO HS, TAB Zolpidem Tartrate (Ambien) 10 Mg Tab 10 MG PO HS PRN for Sleep, TAB Discharge Exam Tolerate clear liquid diet, want to advise to regular diet, and want to go home Review of Systems: Constitutional: + problem reported (detailssee today's progress note), No chills, No fatigue, No fever, No sweats, No weakness, No weight loss Eyes: No diplopia, No discharge, No eye pain, No problem reported, No redness, No worsening of vision ENT: No dental problems, No hearing loss, No nasal symptoms, No problem reported, No sore throat, No tinnitus, No trouble swallowing, No unusual epistaxis Physical Exam: General Appearance: + pertinent finding (details see today's progress) Hospital Course 46-year-old admitted because of diarrhea and left lower quadrant pain on and off that began about 3.5 hours prior to arrival. History of Crohn disease Per report, He had diarrhea and left lower quadrant pain , and a fever, headache, mild diffuse joint pain and was dry heaving earlier prior to the admission he does have a history Crohn's disease, but this is not typical of any flare. His GI doctor is in [facility] and [facility] , locally follow-up [facility] Dr. Alonso. dennis GRIMM He does report having had some bloody stools over the last week. the patient did purchase and eat an egg salad sandwich at a quick eating place, and his symptoms developed about one hour afterwards. Diarrhea likely from food poisoning, stable anymore improve Crohn's disease/history of hemicolectomy in the left side Stool sample sent for culture, C. difficile, and Hemoccult, so far C. difficile negative and Hemoccult negative continue his usual medications of Entocort EC, dicyclomine, mesalamine. Continue hold colestipol and Colace. He will be due for Remicade next week. Continue IV fluid and follow-up labs We'll request an local GI consult GERD- Hypertension Stable continue current medication In the afternoon, patient, etoposide, and want to go home, I told him because of his complex medical conditions I was planning to keep you in the hospital overnight, however you really want to go home with all risks by self which include condition getting worse and need to back to the emergency. GI and DVT prophylaxis is covered Instructions / Follow-Up you have diarrhea and left lower quadrant pain you have History of Crohn disease Because your complex medical conditions I was planning to keep you in the hospital overnight, however you really want to go home with all risks by self which include condition getting worse and need to back to the emergency., etc. you have history Crohn's disease,your GI doctors included in [facility], [facility] , and [facility] Dr. Wood. dennis GRIMM , I recommend to keep appointment with Dr. Wood Recommended back to the emergency room if any condition getting worse - you need to follow up with your primary care physician in 1 week, - take medication as instructed, never overdose or any misuse, or take with alcohol, because misuse of medicine may cause organ damage or , call your primary care physician if have questions of medicaitons. - call your primary care physician OR go to local emergency room if has any fever/chill, chest pain, shortness of breathing, nausea/vomiting/abdominal pain , facial droop/slurry speech/local weakness, or if has any questions. - fall precaution - diet as instructed - you need to follow up with your subspecialist - you should understand that it is important to follow up the above instruction , and "not following the above instruction" may cause delayed or missed care of your medical conditions which may cause permanent organ damage and even . Total Time Spent: Less than 30 minutes This includes examination of the patient, discharge planning, medication reconciliation, and communication with other providers. Discharge Instructions Please refer to the electronic Patient Visit Report (Discharge Instructions) for additional information.
[2017-01-10 15:07] VITALS: BP 126/78; PULSE 71; TEMP 36.7; O2SAT 99
--- NOTE | 2017-01-10 15:31 | GASTROINTESTINAL CONSULTATION ---
DATE OF CONSULTATION: 01/10/2017 REASON FOR EVALUATION: Left lower quadrant pain and Crohn disease. HISTORY OF PRESENT ILLNESS: The patient is a 46-year-old with a longstanding history of ileocolonic Crohn disease. The patient is receiving his healthcare for his inflammatory bowel disease from Dr. Garsia in [place] as well as Dr. George Lazar who is now practicing at [facility] in [place]. The patient receives Remicade every 6 weeks and is due next week for his next dose. The patient has had 2 bowel resections, in 1997 he had an ileocecal resection and then in 2007 had another foot of bowel resected when he developed stenosis of his anastomosis. He reports that he had a colonoscopy about 3 months ago that showed some recurrent stenosis of his anastomosis that had to be dilated, but he has been doing well on his current regimen of Pentasa, Entocort and Remicade. He presents to the hospital yesterday with about a 3-1/2 hour episode of left lower quadrant pain, varying in intensity from a 3 to an 8/10 in severity. He felt like there was something stuck. He began vomiting and then had some diarrhea, but no visible blood. He did have a low grade fever of 38.2 when he presented to the Emergency Room. Stool for bacterial pathogens and C. diff were stent. His CBC, chemistry profile and CAT scan of the abdomen did not show any evidence of any acute pathology to suggest recurrence of Crohn disease. Currently, the patient feels well and is trying to negotiate a discharge because his is out of town and his daughter is home alone. PAST MEDICAL HISTORY: Remarkable for Crohn disease status post ileal resection and ascending and transverse colon resection. Two operations in the past. MEDICATIONS: Entocort 3 mg a day, Pentasa 2 grams twice a day, Remicade every 6 weeks, Colestid, vitamin B12, Bentyl, Colace, folic acid, Prevacid, Cozaar and Zantac, p.r.n. Ambien and Flexeril. ALLERGIES: IODINE. FAMILY HISTORY: Positive for cancer and hypertension. SOCIAL HISTORY: The patient is , has a daughter. Does not smoke. 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 REVIEW OF SYSTEMS: Negative for 12 systems. PHYSICAL EXAMINATION: GENERAL: The patient appears awake, alert, in no acute distress. VITAL SIGNS: Currently normal. LUNGS: Clear. HEART: Showed normal S1 and S2 with a regular rate and rhythm. ABDOMEN: Showed a midline scar with a small umbilical hernia. Bowel sounds are hypoactive. There is mild left lower quadrant tenderness. No masses or rebound. IMPRESSION AND PLAN: The patient presents with left lower quadrant pain, vomiting, and an episode of diarrhea that has all resolved. Stool for Clostridium difficile and bacterial pathogens are pending. His stool is heme negative and his labs and CT are normal. I doubt this represents a flare up of his Crohn disease and may represent either a partial bowel obstruction that has resolved or some form of an infection. I suggested that we should do a limited exam of the lower bowel with enema prep tomorrow. The patient states that the only doctor this whoever done that is the one that is in [facility] in [place] and then he prefer to go home and see how he does, especially since he is feeling better. I told him that we would probably want to watch him least through the day today, to see how he does, so I do not think it would be prudent to send him home and have him come right back if he has active disease. In any case, will follow him while he is in the hospital.
[2017-01-10 17:07] VITALS: BP 126/78; PULSE 71; TEMP 36.7; O2SAT 99
[2017-01-10] MEDS ORDERED: DICYCLOMINE HCL 10 MG CAP PO SCH (21:00)
[2017-01-10] MEDS ORDERED: RANITIDINE HCL 150 MG TAB PO SCH (21:00)
== END 2017-01-10 18:30 | disposition home or self-care (01) ==
LOC: CANRESERV → ENRESERVTM → ENRESERVDT → C.EDB 19:06 → C.MS2W 21:55
PROVIDERS: ADMIT Hospitalist; ATTEND Hospitalist
DX: R19.7 Diarrhea, unspecified (principal); R10.32 Left lower quadrant pain; R50.9 Fever, unspecified; K50.90 Crohn's disease, unspecified, without complications; I10 Essential (primary) hypertension; K21.9 Gastro-esophageal reflux disease without esophagitis; Z79.899 Other long term (current) drug therapy; Z79.52 Long term (current) use of systemic steroids; Z82.49 Family history of ischemic heart disease and other diseases of the circulatory system

== ENCOUNTER → 2017-07-26 | Outpatient (CLI) | payer BC ==
[~2017-07-26] MED LIST changes: +BUDE3CAP14 PO; +COLE1TAB PO; -CRF1 PO; -CYAN3INJ; +CYCL10TA6 PO; +CYNI1000 INJ; +DICY10CA55 PO; +DOCU-94 PO; -FLX10 PO; -LANS30CA12; +LANS30CA12 PO; +LOSA1TAB38 PO; -PNT250; +PNT500 PO; +RANI300T2 PO; -RMCI; +RMCI IN; +ZOLP10TA PO; -[UNRECOGNIZED DRUG - OTHER]
[2017-07-26 14:46] LABS: BLOOD UREA NITROGEN 24 mg/dl (7-18); CALCIUM 8.8 mg/dl (8.5-10.1); CARBON DIOXIDE 26 mmol/L (21-32); CHLORIDE 106 mmol/L (98-107); CREATININE 1.01 mg/dl (0.60-1.40); GLUCOSE,FASTING 98 mg/dl (70-99); POTASSIUM 4.1 mmol/L (3.5-5.1); SODIUM 141 mmol/L (136-145)
[2017-07-26 14:49] LABS: CHOLESTEROL 177 mg/dl (0-200); HDL CHOLESTEROL 59 mg/dl; LDL CHOLESTEROL CALCULATED 102 mg/dl; TRIGLYCERIDES 82 mg/dl (0-150); VERY LOW DENSITY LIPOPROT CALC 16 mg/dl
== END | disposition home or self-care (01) ==
LOC: C.LABPBG 07:47
PROVIDERS: ATTEND Physician Assistant
DX: Z00.00 Encounter for general adult medical examination without abnormal findings (principal)

== ENCOUNTER → 2017-11-30 | Outpatient (CLI) | payer OTHER ==
[~2017-11-30] MED LIST changes: +BUDE1CAP6 PO; -BUDE3CAP14 PO
[2017-11-30 13:10] LABS: INFLUENZA A PCR POS for Influ A (NEG); INFLUENZA B PCR Neg for Influ B (NEG)
== END | disposition home or self-care (01) ==
LOC: C.LABPBG 07:59
PROVIDERS: ATTEND Family Medicine
DX: J11.1 Influenza due to unidentified influenza virus with other respiratory manifestations (principal)

== ENCOUNTER 2025-05-26 15:41 | Observation (INO) ==
--- NOTE | 2025-05-26 16:01 | Emergency Department Note ---
Impression & Plan Sepsis, Fever, Enteroinvasive Escherichia coli infection ED Provider Note NAME: GREGORY REAGAN AGE: 55 SEX: M : 1970 ARRIVES VIA: Walk-In INFORMANT: Patient ED PROVIDER(S): Micha Bajwa DO CHIEF COMPLAINT: fever HPI: Patient is a 55-year-old male who presents to the ER for diffuse myalgias and arthralgias. He notes he has a history of Crohn's and was at [facility] on had a colonoscopy. He has had myalgias and arthralgias since then. Fever started in the past 24 hours. He was seen here this morning and he had persistent fevers of 104 and consequently came back in. He is having shaking chills that he cannot control. Denies any urgency or frequency. Has the same pain in the left lower quadrant that he had previously which is unchanged. He notes diarrhea and bloody stools that he was having yesterday have abated. Has a faint cough but that again is unchanged from what he is had. ADDITIONAL HISTORY OBTAINED: Per HPI Chronic Medical/Social Conditions Affecting Care: Per HPI PAST MEDICAL HISTORY:See Below PAST SURGICAL HISTORY:See Below FAMILY HISTORY:See Below SOCIAL HISTORY:See Below HOME MEDICATIONS:See Below ALLERGIES:See Below VITALS:See Below PHYSICAL EXAMINATION: GENERAL: Sitting up in bed, alert, well appearing, well nourished, no distress, non-toxic EYE EXAM: normal conjunctiva. PERRL and EOM's grossly intact. OROPHARYNX: no exudate, no erythema, lips, buccal mucosa, and tongue normal and mucous membranes are moist NECK: supple, no nuchal rigidity, no adenopathy, non-tender LUNGS: Clear to auscultation. Normal chest wall mechanics HEART: no murmurs, S1 normal and S2 normal ABDOMEN: abdomen soft, non-tender, normo-active bowel sounds, no masses, no rebound or guarding. UPPER EXTREMITIES: upper extremities are grossly normal. LOWER EXTREMITIES: No pitting edema. NEURO EXAM: Normal sensorium, cranial nerves II-XII grossly intact, normal speech, no gross weakness of arms, no gross weakness of legs. MEDICAL DECISION MAKING: Patient is a 55-year-old male with a past medical history of Crohn's disease who presents to the ER for diffuse myalgias arthralgias and fevers. IV was established and blood work was obtained. Labs showed no significant leukocytosis and a mild anemia 11.8. INR unremarkable. BMP with chloride of 108. LFTs bilirubin was unremarkable. Pro-Ramon was normal. UA was clean. Cultures were reviewed from yesterday which showed they were positive for EPEC as well as Yersinia from the stool. Patient was consequently given Cipro following initial dose of Zosyn which was ordered. CT abdomen pelvis was reviewed and there is concern for possible abscess although that this was felt unlikely by 15 yesterday. Did order the ultrasound for this as well. Chest x- ray was unremarkable. Case was discussed with hospitalist for further evaluation management treatment in regards to the stool infections in combination with possible abdominal abscess/cyst. Consults/Care Managements Discussions: Per MDM Triage Nursing notes reviewed. Limited review of prior medical records performed Vital Signs: reviewed and remarkable for febrile, tachycardic Differential diagnosis: Differential diagnosis includes etiologies such as sepsis, UTI, pneumonia, metabolic, electrolyte abnormalities, cardiac sources, intracerebral event, toxicologic, neurological, as well as others were entertained. ER treatment provided: See below Diagnostics interpreted by me include EKG and cardiac monitoring as listed below: -Cardiac Monitoring: An order was placed for continuous cardiac monitoring. The monitor shows a rate of 120 with sinus rhythm. -ECG: Sinus tachycardia rate of 113 Normal axis No PVCs QTc 427 -Laboratory studies:Interpreted by me as stated above in MDM and shown below. Imaging studies: Xrays: As interpreted by me: Portable AP upright 1 view of the chest shows atelectasis in the lower lobes CTs show: none Procedures:none Critical Care: None Past Med/Surg History Problem List (Updated 05/26/25 @ 21:08 by Micha Bajwa DO) Enteroinvasive Escherichia coli infection (Acute) Fever (Acute) Sepsis (Acute) Rhinovirus infection Enterovirus infection Hypertension Infectious colitis H/O esophagogastroduodenoscopy (Acute) S/P colonoscopy with polypectomy (Acute) Body aches (Acute) Chills (Acute) Fever (Acute) Abdominal bloating (Acute) Erectile dysfunction Peyronie's disease Cervical radiculopathy Diarrhea Crohn disease (Chronic) Vitamin B12 deficiency (Chronic) Renal cyst (Chronic) Laryngopharyngeal reflux disease (Chronic) Hyperglycemia (Chronic) Fatigue (Chronic) Aortic root dilatation (Chronic) Anxiety (Chronic) Anemia (Chronic) Abdominal hernia Insomnia HTN, goal below 140/90 Medical History COVID-19 virus infection Pectus excavatum repair Surgical History S/P hernia surgery H/O colectomy S/P partial colectomy Family History Father Hypertension PMR (polymyalgia rheumatica) Mother Hypertension Daughter Sinusitis Acute lymphoblastic leukemia (ALL) Grandfather (Paternal) Myocardial infarction Grandfather (Maternal) Heart disease Brother Hypertension Brother No problems noted. 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 Verified 12/21/24 08:33 Home Meds Home Medications Medication Instructions Recorded Confirmed cyanocobalamin (vitamin B-12) 0 mcg subcut MONTHLY 05/28/19 05/26/25 1,000 mcg/mL injection kit infliximab-dyyb 100 mg intravenous 10 mg IV .10mg/kg Q 5 weeks 05/10/25 05/26/25 solution (Inflectra) albuterol sulfate 90 mcg/actuation 0 inh inhalation UD PRN shortness 05/26/25 05/26/25 aerosol inhaler (Ventolin HFA) of breath or wheezing azelastine 137 mcg (0.1 %) nasal 0 spray intranasal DAILY 05/26/25 05/26/25 spray lansoprazole 30 mg capsule,delayed 30 mg PO DAILY 05/26/25 05/26/25 release meclizine 25 mg tablet 0 mg PO QID PRN dizziness 05/26/25 05/26/25 mesalamine 1.2 gram tablet,delayed 0 g PO BID 05/26/25 05/26/25 release (Lialda) ondansetron HCl 4 mg tablet 0 mg PO Q6H PRN nausea and vomiting 05/26/25 05/26/25 zolpidem 10 mg tablet 0 mg PO HS PRN insomnia 05/26/25 05/26/25 Previous Rx's Medication Instructions Recorded inhalational spacing device #1 ea 10/18/19 (LiteAire MDI Chamber) sildenafil (pulm.hypertension) 20 20 mg PO .as needed #10 tabs 08/18/24 mg tablet lorazepam 1 mg tablet 1 mg PO BID PRN anxiety #60 tabs 10/30/24 losartan 100 mg tablet 100 mg PO DAILY #90 tabs 10/30/24 famotidine 40 mg tablet 40 mg PO DAILY #90 tabs 02/07/25 Results & Data (ED) Vital Signs Vital Signs - 24 hr 05/26/25 15:46 05/26/25 15:57 05/26/25 15:57 Temperature 37.8 C H Temperature Source Temporal Artery Scan Pulse Rate 123 H Pulse Rate [Apical] 109 H Respiratory Rate 16 18 Respiratory Effort / Characteristics Non-Labored Spontaneous Respiratory Depth Normal Blood Pressure 153/90 H Blood Pressure [Right Arm] 157/100 H Blood Pressure Mean 111 Blood Pressure Mean [Right Arm] 119 Pulse Oximetry 95 99 Oxygen Delivery Method Room Air Room Air Room Air Sepsis Recent Fever Within 48 Hours No Sepsis New/Unexplained Change in Mental Status No Sepsis Action Taken by Nursing No Action Required 05/26/25 16:06 05/26/25 17:02 05/26/25 17:26 Temperature Temperature Source Pulse Rate 112 H Pulse Rate [Apical] 114 H 118 H Respiratory Rate 30 H 28 H Respiratory Effort / Characteristics Respiratory Depth Blood Pressure Blood Pressure [Right Arm] 152/103 H 165/103 H Blood Pressure Mean Blood Pressure Mean [Right Arm] 119 123 Pulse Oximetry 96 96 Oxygen Delivery Method Room Air Sepsis Recent Fever Within 48 Hours Sepsis New/Unexplained Change in Mental Status Sepsis Action Taken by Nursing 05/26/25 18:00 Temperature 37.2 C Temperature Source Oral Pulse Rate Pulse Rate [Apical] 120 H Respiratory Rate 25 H Respiratory Effort / Characteristics Respiratory Depth Blood Pressure Blood Pressure [Right Arm] 127/92 Blood Pressure Mean Blood Pressure Mean [Right Arm] 103 Pulse Oximetry 98 Oxygen Delivery Method Sepsis Recent Fever Within 48 Hours Sepsis New/Unexplained Change in Mental Status Sepsis Action Taken by Nursing Laboratory Data 05/26/25 16:00 05/26/25 16:00 Lab Results 05/26/25 05/26/25 Range/Units 16:00 17:00 WBC 6.35 (4.8-10.8) K/ul RBC 3.94 L (4.70-6.10) M/uL Hgb 11.8 L (14.0-18.0) g/dl Hct 33.6 L (42.0-52.0) % MCV 85.3 (80.0-100.0) fL MCH 29.9 (25.0-34.0) pg MCHC 35.1 (32.0-36.0) g/dL RDW Std Deviation 40.8 (36.4-46.3) fL RDW Coeff of Kamila 13.2 (11.5-14.5) % Plt Count 182 (130-400) K/uL MPV 9.4 (9.4-12.4) fL Immature Gran % (Auto) 0.3 % Neut % (Auto) 67.5 % Lymph % (Auto) 18.4 % Mclean % (Auto) 12.6 % Eos % (Auto) 0.9 % Baso % (Auto) 0.3 % Neut # (Auto) 4.28 (1.40-6.50) K/uL Lymph # (Auto) 1.17 L (1.20-3.40) K/uL Mclean # (Auto) 0.80 H (0.11-0.59) K/uL Eos # (Auto) 0.06 (0.00-0.50) K/uL Baso # (Auto) 0.02 (0.00-0.20) K/uL Immature Gran # (Auto) 0.02 (0.01-0.20) K/uL PT 11.9 (9.0-12.0) Seconds INR 1.1 (0.9-1.1) Sodium 137 (136-145) mmol/L Potassium 3.9 (3.5-5.1) mmol/L Chloride 108 H (98-107) mmol/L Carbon Dioxide 23 (21-32) mmol/L Anion Gap 6 (3-11) BUN 20 (6-23) mg/dl Creatinine 1.33 (0.6-1.4) mg/dl Est Cr Clr Drug Dosing 87.3 ml/min eGFR 62.73 BUN/Creatinine Ratio 15.0 (10-20) Glucose 105 H (70-99(Fasting)) mg/dl Lactate 1.1 (0.4-2.0) mmol/L Calcium 8.6 (8.6-10.3) mg/dl Magnesium 1.6 L (1.7-2.4) mg/dl Total Bilirubin 0.7 (0.2-1.0) mg/dl Direct Bilirubin 0.2 (0-0.2) mg/dl AST 21 (13-39) U/L ALT 37 (7-52) U/L Alkaline Phosphatase 74 (34-104) U/L Troponin I High Sens 8.3 (0-20) pg/ml Total Protein 7.0 (6.0-8.3) gm/dl Albumin 3.9 (3.4-5.0) gm/dl Procalcitonin 0.38 (0-0.5) ng/ml Urine Color Yellow Urine Appearance Clear (Clear) Urine pH 5.0 (4.5-7.5) Ur Specific Henrietta 1.019 (1.000-1.030) Urine Protein Negative (Negative) Urine Glucose (UA) Negative (Negative) Urine Ketones Trace H (Negative) Urine Blood Negative (Negative) Urine Nitrite Negative (Negative) Urine Bilirubin Negative (Negative) Urine Urobilinogen Negative (Negative) Ur Leukocyte Esterase Negative (Negative) Urine Comment Monoscreen Negative (Negative) Administered Medications Acetaminophen (Acetaminophen 325 Mg Tab) 650 mg PO Q4H PRN PRN Reason: Pain or Fever Stop: 06/25/25 19:27 Last Admin: 05/26/25 20:12 Dose: 650 mg Documented By: ALISON Sodium Chloride (Nss) 1,000 mls @ 999 mls/hr IV .Q1H1M PHONG Stop: 05/26/25 21:28 Last Admin: 05/26/25 20:13 Dose: 999 mls/hr Documented By: ALISON Prochlorperazine 10 mg/ (Syringe) 10 mls @ 5 mls/min IV Q6H PRN PRN Reason: Nausea And Vomiting Stop: 06/25/25 20:07 Last Admin: 05/26/25 20:54 Dose: 5 mls/min Documented By: JRK Discontinued Medications Sodium Chloride (Nss) 1,000 mls @ 999 mls/hr IV .Q1H1M PHONG Stop: 05/26/25 17:00 Last Infusion: 05/26/25 16:59 Dose: Infused Documented By: Admin: 05/26/25 16:02 Dose: 999 mls/hr Documented By: WISAM Piperacillin Sod/Tazobactam Sod (Zosyn) 4.5 gm in 100 mls @ 200 mls/hr IV NOW ONE; Protocol Stop: 05/26/25 16:30 Last Infusion: 05/26/25 16:33 Dose: Infused Documented By: Admin: 05/26/25 16:03 Dose: 200 mls/hr Documented By: WISAM Ciprofloxacin (Cipro / D5w) 400 mg in 200 mls @ 100 mls/hr IV NOW STA; Protocol Stop: 05/26/25 18:07 Last Infusion: 05/26/25 19:22 Dose: Infused Documented By: Admin: 05/26/25 16:58 Dose: 100 mls/hr Documented By: WISAM Ketorolac Tromethamine (Ketorolac Tromethamine 15 Mg/Ml Vial) 15 mg IV NOW ONE Stop: 05/26/25 17:22 Last Admin: 05/26/25 17:27 Dose: 15 mg Documented By: SORENW Ondansetron HCl (Ondansetron Inj 2 Mg/Ml 2 Ml Vial) 4 mg IV NOW STA Stop: 05/26/25 17:22 Last Admin: 05/26/25 17:27 Dose: 4 mg Documented By: KAREEM Imaging Data Radiologist's Impression: Chest X-Ray 05/26/25 15:57 Exam: Chest one view portable. Reason for exam: Sepsis Previous study: Chest x-ray 05/26/2023 FINDINGS: Cardiac size remains normal. Mild scattered interstitial opacities seen with some areas of atelectasis in the lower lobes without definite lobar consolidation or collapse. No pleural effusion or pneumothorax is noted. 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 IMPRESSION: Chronic interstitial lung opacities and areas of subsegmental atelectasis. Otherwise negative for acute disease at this time. Electronically signed by Feliz Martinez 05-26-2025 4:42 PM Abdomen Ultrasound 05/26/25 16:15 HISTORY: Possible abscess in the region of the umbilicus. TECHNIQUE: Superficial ultrasound evaluation of the area of concern in the region of the umbilicus. COMPARISON: CT without contrast dated 05/26/2025. FINDINGS: 5.8 x 2.6 x 4.4 cm thick walled complex fluid collection involving the midline ventral abdominal wall in the region of the umbilicus. This extends along the superficial muscle fascia within the subcutaneous fat. No associated color Doppler flow. IMPRESSION: 5.8 x 2.6 x 4.4 cm thick walled complex fluid collection involving the midline ventral abdominal wall in the region of the umbilicus. This could represent abscess or seroma. Electronically signed by Mj Patrick 05-26-2025 6:19 PM Discharge Plan Visit Data Chief Complaint: Fever Stated Complaint: HIGH FEVER RHIROVIS ED Provider: Micha Bajwa Discharge Problem: Sepsis, Fever, Enteroinvasive Escherichia coli infection Patient Disposition: Admitted As Inpatient Condition: Fair Discharge Instructions Interventions: ED Discharge Assessment Last Done: 05/26/25 19:29 Discharge Problem: Sepsis Qualifiers: Sepsis type: sepsis due to unspecified organism Sepsis acute organ dysfunction status: unspecified Qualified Code(s): A41.9 - Sepsis, unspecified organism Fever Qualifiers: Fever type: unspecified Qualified Code(s): R50.9 - Fever, unspecified
[2025-05-26] MEDS: SODIUM CHLORIDE 0.9% 1,000 ML IV SCH ×3 (16:02→22:15)
[2025-05-26] MEDS: PIPERACILLIN/TAZOBACTAM 4.5 GM/100 ML BAG IV ONE (16:03)
[2025-05-26 16:22] LABS: Hematocrit (blood only) 33.6 % (42.0-52.0); Hemoglobin 11.8 g/dl (14.0-18.0); Immature Granulocytes # (auto) 0.02 K/uL (0.01-0.20); Immature Granulocytes % (auto) 0.3 %; Mean Corpuscular Hemoglobin 29.9 pg (25.0-34.0); Mean Corpuscular Volume 85.3 fL (80.0-100.0); Platelet Count 182 K/uL (130-400); RDW Standard Deviation 40.8 fL (36.4-46.3); Red Blood Count 3.94 M/uL (4.70-6.10); White Blood Count 6.35 K/ul (4.8-10.8)
[2025-05-26 16:40] LABS: Alanine Aminotransferase 37.0 U/L (7-52); Alkaline Phosphatase 74.0 U/L (34-104); Anion Gap 6.0 (3-11); Bilirubin,Total 0.7 mg/dl (0.2-1.0); Blood Urea Nitrogen 20.0 mg/dl (6-23); Calcium 8.6 mg/dl (8.6-10.3); Carbon Dioxide 23.0 mmol/L (21-32); Chloride 108.0 mmol/L (98-107); Creatinine Clr Calc Pharmacy 87.3 ml/min; Glucose 105.0 mg/dl (70-99(Fasting)); Magnesium 1.6 mg/dl (1.7-2.4); Potassium 3.9 mmol/L (3.5-5.1); Sodium 137.0 mmol/L (136-145); Total Protein 7.0 gm/dl (6.0-8.3)
--- NOTE | 2025-05-26 16:43 | XRay Report ---
Exam: Chest one view portable. Reason for exam: Sepsis Previous study: Chest x-ray 05/26/2023 FINDINGS: Cardiac size remains normal. Mild scattered interstitial opacities seen with some areas of atelectasis in the lower lobes without definite lobar consolidation or collapse. No pleural effusion or pneumothorax is noted. 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 IMPRESSION: Chronic interstitial lung opacities and areas of subsegmental atelectasis. Otherwise negative for acute disease at this time. Electronically signed by Feliz Martinez 05-26-2025 4:42 PM
[2025-05-26 16:49] LABS: INR 1.1 (0.9-1.1); Prothrombin Time 11.9 Seconds (9.0-12.0)
[2025-05-26] MEDS: CIPROFLOXACIN / D5W 400 MG/200 ML BAG IV STA (16:58)
[2025-05-26 17:19] LABS: Appearance Urine Clear (Clear); Glucose Urine UA Negative (Negative)
[2025-05-26] MEDS: KETOROLAC TROMETHAMINE 15 MG/ML VIAL IV ONE (17:27)
[2025-05-26] MEDS: ONDANSETRON INJ 2 MG/ML 2 ML VIAL IV STA (17:27)
--- NOTE | 2025-05-26 18:19 | Ultrasound Report ---
HISTORY: Possible abscess in the region of the umbilicus. TECHNIQUE: Superficial ultrasound evaluation of the area of concern in the region of the umbilicus. COMPARISON: CT without contrast dated 05/26/2025. FINDINGS: 5.8 x 2.6 x 4.4 cm thick walled complex fluid collection involving the midline ventral abdominal wall in the region of the umbilicus. This extends along the superficial muscle fascia within the subcutaneous fat. No associated color Doppler flow. IMPRESSION: 5.8 x 2.6 x 4.4 cm thick walled complex fluid collection involving the midline ventral abdominal wall in the region of the umbilicus. This could represent abscess or seroma. Electronically signed by Mj Patrick 05-26-2025 6:19 PM
--- NOTE | 2025-05-26 18:29 | History & Physical Report ---
Date of Service May 26, 2025 Assessment & Plan (1) Infectious colitis: (2) Rhinovirus infection: (3) Crohn disease: (4) Hypertension: Plan Harjit is a very pleasant 55-year-old man with past medical history of Crohn's disease, hypertension, enlarged aorta, GERD, skin cancer, vitamin B12 deficiency. He had EGD, colonoscopy with polypectomy at [facility] on 05/24. On Friday 05/25 he developed myalgias, arthralgias, fever, chills, rigors, diarrhea with 1 episode of rectal bleeding, nausea, abdominal pain. Initially presented to the ED on 05/25 and was discharged home. Return to the ED due to persisting symptoms and return of fever at 104F at home. He was admitted for treatment of infectious colitis and dehydration. #Infectious colitis stool culture + EPEC annd Y. enterocolitica - Ciprofloxacin 500 mg IV BID x 3 days - S/p 1 L NSS bolus in ED. Continue with 1 L NSS bolus x 2, then continue on NSS at maintenance rate overnight - Tylenol as needed for mild pain/fever, Toradol IV as needed for moderate- severe pain - Protonix 40 mg IV BID, famotidine 40 mg daily - Zofran as needed for nausea -Abdominal ultrasound notes 5.8 x 2.6 x 4.4 cm thick walled complex fluid collection involving the midline ventral abdominal wall in the region of the umbilicus (this could represent abscess or seroma). Does not physically examine like an abscess. Antibiotics as outlined above and will continue to monitor with serial exams/labs #Entero-/Rhinovirus - relatively asymptomatic in this regard. Supportive measures #Crohn's diseasefollows with [facility] and [facility]. Hold Inflectra with acute infection #Hypertensioncontinue losartan VTE PPx: Low risk, encourage ambulation. Consider chemoprophylaxis if prolonged length of stay Dispo: Med/tele Updated at bedside on admission Reviewed outpatient records History of Present Illness Chief Complaint: Fever Primary Care Provider: Nanette Melo MD Harjit is a very pleasant 55-year-old man with past medical history of Crohn's disease, hypertension, enlarged aorta, GERD, skin cancer, vitamin B12 deficiency. He presented from home with fevers; second time presenting to the ED within 24 hours. At the time of my exam, the patient was lying in bed in no acute distress with his present. He states he had an EGD and colonoscopy with polypectomy at [facility] on 05/24 and was observed overnight and discharged Wednesday morning. Wednesday afternoon, he developed chills and body aches. He had diarrhea with 1 episode of bright red blood with his bowel movement. He reports this is not uncommon with his Crohn's disease, especially after polypectomy. He presented to the ED yesterday night 05/25 and tested positive for EPEC, Y. enterocolitica, as well as entero-/rhinovirus. He was ultimately discharged back home. At home, he continued to have myalgias, arthralgias, bloating, abdominal pain, nausea, and rigors. He took his temperature again and it was 104 F. He contacted his team at [facility] who recommended he return to the ED. He reports his myalgias and arthralgias are much improved after receiving Toradol. Nausea has resolved since receiving Zofran. Vitals on admission significant for tachycardia with HR 120, tachypnea with RR 25, low-grade fever at 100.0 F; vitals otherwise stable. Labs on admission are significant for mild anemia with Hgb 11.8, mild hypomagnesemia with mag 1.6. No leukocytosis. Electrolytes stable. Liver enzymes stable. Renal function stable. Lactate normal. Procalcitonin normal. Troponin normal. UA negative. Monoscreen negative. CT A/P notes possible infective collection around umbilicus. Abdominal ultrasound notes 5.8 x 2.6 x 4.4 cm thick-walled complex fluid collection involving midline ventral abdominal wall around umbilicus that could represent abscess or seroma. CXR unremarkable. We discussed code status, patient wishes to be a full code. Allergies Allergy/AdvReac Type Severity Reaction Status Date / Time Iodinated Contrast Media Allergy Unknown . Verified 12/21/24 08:33 Home Medications Medication Instructions Recorded Confirmed Type cyanocobalamin (vitamin B-12) 0 mcg subcut MONTHLY 05/28/19 05/26/25 History 1,000 mcg/mL injection kit inhalational spacing device #1 ea 10/18/19 01/18/25 Rx ([employer]ite[employer]ire MDI Chamber) sildenafil (pulm.hypertension) 20 20 mg PO .as needed #10 tabs 08/18/24 05/26/25 Rx mg tablet lorazepam 1 mg tablet 1 mg PO BID PRN anxiety #60 tabs 10/30/24 05/26/25 Rx losartan 100 mg tablet 100 mg PO DAILY #90 tabs 10/30/24 05/26/25 Rx famotidine 40 mg tablet 40 mg PO DAILY #90 tabs 02/07/25 05/26/25 Rx infliximab-dyyb 100 mg intravenous 10 mg IV .10mg/kg Q 5 weeks 05/10/25 05/26/25 History solution (Inflectra) albuterol sulfate 90 mcg/actuation 0 inh inhalation UD PRN shortness 05/26/25 05/26/25 History aerosol inhaler (Ventolin HFA) of breath or wheezing azelastine 137 mcg (0.1 %) nasal 0 spray intranasal DAILY 05/26/25 05/26/25 History spray lansoprazole 30 mg capsule,delayed 30 mg PO DAILY 05/26/25 05/26/25 History release meclizine 25 mg tablet 0 mg PO QID PRN dizziness 05/26/25 05/26/25 History mesalamine 1.2 gram tablet,delayed 0 g PO BID 05/26/25 05/26/25 History release (Lialda) ondansetron HCl 4 mg tablet 0 mg PO Q6H PRN nausea and vomiting 05/26/25 05/26/25 History zolpidem 10 mg tablet 0 mg PO HS PRN insomnia 05/26/25 05/26/25 History Past Med/Surg History Problem List (Updated 05/26/25 @ 19:09 by Gale Wilde PA-C) Rhinovirus infection Enterovirus infection Hypertension Infectious colitis H/O esophagogastroduodenoscopy (Acute) S/P colonoscopy with polypectomy (Acute) Body aches (Acute) Chills (Acute) Fever (Acute) Abdominal bloating (Acute) Erectile dysfunction Peyronie's disease Cervical radiculopathy Diarrhea Crohn disease (Chronic) Vitamin B12 deficiency (Chronic) Renal cyst (Chronic) Laryngopharyngeal reflux disease (Chronic) Hyperglycemia (Chronic) Fatigue (Chronic) Aortic root dilatation (Chronic) Anxiety (Chronic) Anemia (Chronic) Abdominal hernia Insomnia HTN, goal below 140/90 Medical History COVID-19 virus infection Pectus excavatum repair Surgical History S/P hernia surgery H/O colectomy S/P partial colectomy Family History Father Hypertension PMR (polymyalgia rheumatica) Mother Hypertension Daughter Sinusitis Acute lymphoblastic leukemia (ALL) Grandfather (Paternal) Myocardial infarction Grandfather (Maternal) Heart disease Brother Hypertension Brother No problems noted. Denies family history of Colon cancer Ovarian cancer Prostate cancer Breast cancer Social History Smoking Status: Never smoker Second Hand Exposure: No; Do You Dip or Chew Tobacco: No; Hx Alcohol Use: No Hx Substance Use: No Preferred Language: Yoruba Communication Ability: Effective Visual Impairment: No Limitations Hearing Ability: Normal Acid Conditioner Required: No marital status: Current Living Situation: Spouse and Family current occupational status: employed current occupation: [employer] How many Children do You have: 1 Feels Safe at Home: Yes Childhood Exposure to Second-Hand Smoke: No Diet: regular caffeine: Yes during the past year weight has: remained stable Dental Care, Regularly: Yes Physical Activity Frequency: Daily Seatbelt Use: always Sunscreen Use: Yes Assistive Devices: Glasses Review of Systems Review of Systems: All systems reviewed & are unremarkable except as noted in Subjective Physical Exam Physical Exam: General: No acute distress, nondiaphoretic, well-developed, well-nourished. Appears ill. Skin: Warm, dry. No rashes or peripheral edema noted. Dry mucous membranes. Cardiac: Tachycardic rate and regular rhythm without murmurs gallops or rubs. Pulm: Clear to auscultation bilaterally without wheezes, rales or rhonchi. Normal respiratory effort. 98% on room air. Abdominal: Soft, nondistended. Tender to palpation in lower quadrants. No rebound or guarding. Bowel sounds present. Neuro: A&O x3. No focal neurological deficits. Results & Data Results & Data Vital Signs (Past 12 Hours) Vital Signs Temp Pulse Pulse Resp BP BP Pulse Ox 05/26/25 18:00 99.0 F 120 H 25 H 127/92 98 05/26/25 17:26 118 H 28 H 165/103 H 96 05/26/25 17:02 114 H 30 H 152/103 H 96 05/26/25 16:06 112 H 05/26/25 15:57 109 H 18 157/100 H 99 05/26/25 15:57 05/26/25 15:46 100.0 F H 123 H 16 153/90 H 95 O2 Del Method 05/26/25 18:00 05/26/25 17:26 Room Air 05/26/25 17:02 05/26/25 16:06 05/26/25 15:57 Room Air 05/26/25 15:57 Room Air 05/26/25 15:46 Room Air Laboratory Results Reviewed CBC with differential Reviewed coags Reviewed CMP, chemistries Diagnostic Findings Reviewed CXR, CT A/P, abdomen ultrasound Supervising Physician Co-Signing Physician Notes I personally examined the patient and verified all mcallister points of history and exa m, discussed case, and agree with decision making with Jassi Wilde PA-C Fevers, diarrhea, feels lousy. Vitals noted, in general he is awake and alert pleasant appears ill. Breathing unlabored no accessory muscle use good effort. Abdomen is soft no focal tenderness no guarding rebound or rigidity. Labs and diagnostics noted. Exam otherwise as above. Sepsis (especially fevers and tachycardia as his main SIRS criteria)seems to be multifactorialhis colitis (stool showing both EPEC and Carolyn) as well as respiratory viral infections. He seems to be quite dehydratedaggressive IV fluids. Cipro to treat the EPEC and uricemia. Supportive care for the rest of his illness. In regards to the question of an abdominal abscess, I doubt it, reviewing the CT myself I do not see anything that seems to correlate with his exam, the ultrasound is also equivocal. Serial exams and time. Otherwise as above. PG Care Time/CCT Total # of Minutes Spent Total Time Spent with Patient: Total time spent is greater than 50% in coordination of care (as documented) at patient's floor/unit and/or counseling patient: Coding Level of Care Code 27889 INT INP/OBS CARE 3/75MIN Diagnoses Infectious colitis A09 Rhinovirus infection B34.8 Crohn disease K50.90 Hypertension I10
[2025-05-26] MEDS ORDERED: ONDANSETRON INJ 2 MG/ML 2 ML VIAL IV PRN (19:28)
[2025-05-26] MEDS ORDERED: ALBUTEROL HFA 8 GM INHALER INH PRN (19:28)
[2025-05-26] MEDS ORDERED: ALUMINUM/MAGNESIUM SUSP 30 ML UDC PO PRN (19:28)
[2025-05-26] MEDS ORDERED: MELATONIN 3 MG TAB PO PRN (19:28)
[2025-05-26] MEDS: ACETAMINOPHEN 325 MG TAB PO PRN (20:12)
[2025-05-26] MEDS: PROCHLORPERAZINE 10 MG in SYRINGE 8 ML IV PRN (20:54)
[2025-05-26] MEDS: PANTOprazole 40 MG/10 ML SYR IV SCH (21:12)
[2025-05-27] MEDS: KETOROLAC TROMETHAMINE 15 MG/ML VIAL IV PRN (00:23)
[2025-05-27] MEDS: CIPROFLOXACIN / D5W 400 MG/200 ML BAG IV SCH (05:46)
[2025-05-27] MEDS: FAMOTIDINE 40 MG TABLET PO SCH (07:20)
[2025-05-27] MEDS: LOSARTAN POTASSIUM 50 MG TAB PO SCH (07:20)
[2025-05-27 09:14] LABS: Hematocrit (blood only) 32.0 % (42.0-52.0); Hemoglobin 10.9 g/dl (14.0-18.0); Mean Corpuscular Hemoglobin 29.4 pg (25.0-34.0); Mean Corpuscular Volume 86.3 fL (80.0-100.0); Platelet Count 143 K/uL (130-400); RDW Standard Deviation 41.9 fL (36.4-46.3); Red Blood Count 3.71 M/uL (4.70-6.10); White Blood Count 11.95 K/ul (4.8-10.8)
[2025-05-27 09:29] LABS: Alanine Aminotransferase 38.0 U/L (7-52); Albumin Globulin Ratio 1.3 (0.9-2); Alkaline Phosphatase 67.0 U/L (34-104); Anion Gap 6.0 (3-11); Bilirubin,Total 1.4 mg/dl (0.2-1.0); Blood Urea Nitrogen 19.0 mg/dl (6-23); Calcium 7.9 mg/dl (8.6-10.3); Carbon Dioxide 23.0 mmol/L (21-32); Chloride 108.0 mmol/L (98-107); Creatinine Clr Calc Pharmacy 96.4 ml/min; Globulin 2.8 gm/dl (2.5-4.0); Glucose 131.0 mg/dl (70-99(Fasting)); Magnesium 1.5 mg/dl (1.7-2.4); Potassium 3.9 mmol/L (3.5-5.1); Sodium 137.0 mmol/L (136-145); Total Protein 6.3 gm/dl (6.0-8.3)
--- NOTE | 2025-05-27 10:30 | Hospitalist Progress Note ---
Date of Service May 27, 2025 Assessment & Plan (1) Infectious colitis: (2) Rhinovirus infection: (3) Crohn disease: (4) Hypertension: Plan Harjit is a very pleasant 55-year-old man with past medical history of Crohn's disease, hypertension, enlarged aorta, GERD, skin cancer, vitamin B12 deficiency. He had EGD, colonoscopy with polypectomy at [facility] on 05/24. On Friday 05/25 he developed myalgias, arthralgias, fever, chills, rigors, diarrhea with 1 episode of rectal bleeding, nausea, abdominal pain. Initially presented to the ED on 05/25 and was discharged home. Returned to the ED due to persisting symptoms and return of fever at 104 F at home. He was admitted for treatment of infectious colitis and dehydration. #Infectious colitis stool culture + EPEC annd Y. enterocolitica. Abdominal ultrasound notes 5.8 x 2.6 x 4.4 cm thick walled complex fluid collection involving the midline ventral abdominal wall in the region of the umbilicus (this could represent abscess or seroma). This is chronic, noted on CT from 2021 at [facility]. Does not physically examine like an abscess. Antibiotics as outlined below and continue to monitor with serial exams/labs. - Febrile overnight 05/26-05/27 with Tmax 103.5 F - fever now resolved, ta chycardia resolved - Mild leukocytosis of 11.95 (increased from 6.35 on admission). No further bleeding with BMs, drop in hgb likely dilutional from IVF - continue to trend CBC - Continue Ciprofloxacin 500 mg IV BID x 3 days - S/p 3 L NSS boluses. Continue NSS at maintenance rate for now - Tylenol as needed for mild pain/fever, Toradol IV as needed for moderate- severe pain - Protonix 40 mg IV BID, famotidine 40 mg daily - Zofran as needed for nausea - Well-tolerating advancement to regular diet - Given immunocompromised state from immunotherapy, at increased risk of complications. Recommend clear return precautions on discharge #Hypomagnesemia - mild, likely secondary to diarrhea. Replete with 1 g IV mag x 2. Trend mag with AM labs #Entero-/Rhinovirus - relatively asymptomatic in this regard. Supportive measures #Crohn's diseasefollows with [facility] and [facility]. Hold Inflectra with acute infection #Hypertensioncontinue losartan VTE PPx: Low risk, encourage ambulation. Consider chemoprophylaxis if prolonged length of stay Dispo: Anticipate discharge home tomorrow 05/28 if remains afebrile, no worsening of leukocytosis, electrolytes stable, and tolerating diet Advanced diet Repleted with IV mag Admission and Anticipated Discharge Date Admission Date: May 26, 2025 Subjective Patient seen and evaluated at bedside. He appears much better compared to on admission yesterday. He reports feeling "like a new person now." He notes that he felt poorly overnight until mid-way through the night when his fever broke. He was quite febrile with Tmax 103.5 F again overnight. Today is reports that his myalgias are much improved, diarrhea improved, nausea and abdominal pain resolved. He feels ready to go home. We discussed that given his immunocompromised state, he is at increased risk of complications and would prefer to monitor again overnight and ensure labs/vitals stable. He is agreeable to this. He is well-tolerating his advancement to a regular diet. No additional complaints or concerns at this time. Telemetry reviewed: NSR with rates 130 overnight, steadily improved, and now maintains NSR in 80s. Physical Exam Physical Exam: General: No acute distress, nondiaphoretic, well-developed, well-nourished. Appears ill. Skin: Warm, dry. No rashes or peripheral edema noted. Moist mucous membranes. Cardiac: Regular rate and rhythm without murmurs gallops or rubs. Pulm: Clear to auscultation bilaterally without wheezes, rales or rhonchi. Normal respiratory effort. 98% on room air. Abdominal: Soft, nondistended. Mild tenderness to palpation in lower quadrants; improved. No rebound or guarding. Bowel sounds present. Neuro: A&O x3. No focal neurological deficits. Results & Data Results & Data Vital Signs (Past 12 Hours) Vital Signs Temp Pulse Resp BP Pulse Ox O2 Del Method 05/27/25 07:36 97.9 F 88 18 130/80 98 Room Air 05/27/25 02:23 98.2 F 101 H 18 128/84 96 CPAP 05/27/25 00:23 102.4 F H 05/26/25 23:23 103.5 F H 128 H 22 151/87 H 97 Room Air Laboratory Results Reviewed CBC Reviewed CMP PG Care Time/CCT Total # of Minutes Spent Total Time Spent with Patient: Total time spent is greater than 50% in coordination of care (as documented) at patient's floor/unit and/or counseling patient: Coding Level of Care Code 16993 SUB INP/OBS CARE 3/50MIN Diagnoses Infectious colitis A09 Rhinovirus infection B34.8 Crohn disease K50.90 Hypertension I10
[2025-05-27] MEDS: MAGNESIUM SULFATE / D5W 1 GM/100 ML BAG IV SCH (10:45)
[2025-05-27] MEDS: ACETAMINOPHEN 1,000 MG/100 ML VIAL IV PRN (19:10)
[2025-05-27 23:41] VITALS: RESP 18; O2SAT 97
[2025-05-28 06:26] LABS: Hematocrit (blood only) 32.3 % (42.0-52.0); Hemoglobin 11.3 g/dl (14.0-18.0); Mean Corpuscular Hemoglobin 30.1 pg (25.0-34.0); Mean Corpuscular Volume 85.9 fL (80.0-100.0); Platelet Count 179 K/uL (130-400); RDW Standard Deviation 41.4 fL (36.4-46.3); Red Blood Count 3.76 M/uL (4.70-6.10); White Blood Count 6.95 K/ul (4.8-10.8)
[2025-05-28 06:58] LABS: Alanine Aminotransferase 53.0 U/L (7-52); Albumin Globulin Ratio 1.2 (0.9-2); Alkaline Phosphatase 86.0 U/L (34-104); Anion Gap 5.0 (3-11); Bilirubin,Total 0.8 mg/dl (0.2-1.0); Blood Urea Nitrogen 19.0 mg/dl (6-23); Calcium 8.3 mg/dl (8.6-10.3); Carbon Dioxide 23.0 mmol/L (21-32); Chloride 110.0 mmol/L (98-107); Creatinine Clr Calc Pharmacy 88.0 ml/min; Globulin 3.0 gm/dl (2.5-4.0); Glucose 126.0 mg/dl (70-99(Fasting)); Magnesium 2.0 mg/dl (1.7-2.4); Potassium 4.0 mmol/L (3.5-5.1); Sodium 138.0 mmol/L (136-145); Total Protein 6.6 gm/dl (6.0-8.3)
[2025-05-28 07:34] VITALS: BP 138/78; TEMP 98.1
[2025-05-28 08:01] VITALS: PULSE 88
--- NOTE | 2025-05-28 09:19 | Discharge Summary ---
Discharge Summary Date of Service May 28, 2025 Principal Dx & Hospital Course #1 = Principal Diagnosis (1) Infectious colitis: (2) Rhinovirus infection: (3) Crohn disease: (4) Hypertension: Plan Harjit is a very pleasant 55-year-old man with past medical history of Crohn's disease, hypertension, enlarged aorta, GERD, skin cancer, vitamin B12 deficiency. He had EGD, colonoscopy with polypectomy at [facility] on 05/24. On Friday 05/25 he developed myalgias, arthralgias, fever, chills, rigors, diarrhea with 1 episode of rectal bleeding, nausea, abdominal pain. Initially presented to the ED on 05/25 and was discharged home. Returned to the ED due to persisting symptoms and return of fever at 104 F at home. He was admitted for treatment of infectious colitis and dehydration. #Infectious colitis Stool cultures + for EPEC & Y. enterocolitica. Abdominal US: 5.8x2.6x4.4cm thick walled complex fluid collection involving the midline ventral abdominal wall in region of umbilicus. - chronic dating back to at least a CT scan in 2021 @ [facility]. - does not physically examine like abscess. Leukocytosis resolved. Hgb stabilized. Cipro for 3 additional doses at home to complete 3 day course. s/p IVF, tolerating regular diet. Recommend reaching out to GI on discharge to discuss upcoming Inflectra infusion that is set for 06/01. Zofran prn for anausea on dc. #Hypomagnesemia - mild, likely secondary to diarrhea. Replete with 1 g IV mag x 2. Resolved #Entero-/Rhinovirus - relatively asymptomatic in this regard. Supportive measur es #Crohn's diseasefollows with [facility] and [facility]. #Hypertensioncontinue losartan Discharged home 05/28. Admission HPI Per Admitting Provider Harjit is a very pleasant 55-year-old man with past medical history of Crohn's disease, hypertension, enlarged aorta, GERD, skin cancer, vitamin B12 deficiency. He presented from home with fevers; second time presenting to the ED within 24 hours. At the time of my exam, the patient was lying in bed in no acute distress with his present. He states he had an EGD and colonoscopy with polypectomy at [facility] on 05/24 and was observed overnight and discharged Wednesday morning. Wednesday afternoon, he developed chills and body aches. He had diarrhea with 1 episode of bright red blood with his bowel movement. He reports this is not uncommon with his Crohn's disease, especially after polypectomy. He presented to the ED yesterday night 05/25 and tested positive for EPEC, Y. enterocolitica, as well as entero-/rhinovirus. He was ultimately discharged back home. At home, he continued to have myalgias, arthralgias, bloating, abdominal pain, nausea, and rigors. He took his temperature again and it was 104 F. He contacted his team at [facility] who recommended he return to the ED. He reports his myalgias and arthralgias are much improved after receiving Toradol. Nausea has resolved since receiving Zofran. Vitals on admission significant for tachycardia with HR 120, tachypnea with RR 25, low-grade fever at 100.0 F; vitals otherwise stable. Labs on admission are significant for mild anemia with Hgb 11.8, mild hypomagnesemia with mag 1.6. No leukocytosis. Electrolytes stable. Liver en zymes stable. Renal function stable. Lactate normal. Procalcitonin normal. Troponin normal. UA negative. Monoscreen negative. CT A/P notes possible infective collection around umbilicus. Abdominal ultrasound notes 5.8 x 2.6 x 4.4 cm thick-walled complex fluid collection involving midline ventral abdominal wall around umbilicus that could represent abscess or seroma. CXR unremarkable. We discussed code status, patient wishes to be a full code. Discharge Exam Constitutional WD/WN, vitals as above Eyes PERRL, conjunctivae normal, anicteric sclerae Respiratory normal respiratory effort Skin no rashes, warm and dry Neurologic PERRL, EOMI, accommodation nl, no face palsy, no dysarthria Psychiatric A+Ox3, euthymic affect Discharge Plan Discharge Items Patient Disposition: Home - Self-Care Reason For Visit: INFECTIOUS COLITIS Discharge Diagnosis: Infectious colitis Condition on Discharge: Fair Activity: Resume your previous activity Non-emergency contact: Primary Care Provider and Security Team Lead Call non-emergency contact if: you have any medication questions, your symptoms worsen and you have a fever Follow-up/Referrals: Colten,Diogenes Quiñonez, [Physician] - Nanette Melo MD [Primary Care Provider] - 06/04/25 3:00 pm Diet: Low Fiber Addtl Attending Provider Instructions: Mr. Harris, You were recently hospitalized for muscle/joint aches, fever, chills, diarrhea, and abdominal pain. You were found to have two infectious organisms in your stool sample: EPEC which is a form of E. coli and Yersinia. You were treated with IV antibiotics and IV fluids with improvement of your symptoms. Please see recommendations below regarding your discharge. Please take Ciprofloxacin twice daily for the next 1.5 days. Your next dose will be this evening, 05/28. Please take with food to avoid GI upset. Please use Zofran as needed every 6 hours for nausea and vomiting. Please contact your pediatric allergist regarding your Inflectra infusion. Please resume the remainder of your outpatient medications on discharge. Please follow up with your PCP within 1-2 weeks of discharge. Best of luck! Alma Zayas PA-C Pending Studies at Discharge: Yes Studies:: final result of blood cultures Stand-Alone Forms: My [facility] [employer], Smoking Cessation Medications and DC Order Prescriptions: New ciprofloxacin HCl 500 mg tablet 500 mg PO BID Qty: 3 0RF ondansetron 4 mg tablet,disintegrating 4 mg PO Q6H PRN (Reason: nausea and vomiting) Qty: 30 0RF Continued losartan 100 mg tablet 100 mg PO DAILY Qty: 90 3RF lorazepam 1 mg tablet 1 mg PO BID PRN (Reason: anxiety) Qty: 60 1RF Patient Comments: 05/26- last filled 10/30 30 day supply famotidine 40 mg tablet 40 mg PO DAILY Qty: 90 3RF Inflectra 100 mg recon soln 10 mg IV .10mg/kg Q 5 weeks Patient Comments: 05/26- no fill history unable to verify Rx Instructions: 10mg/kg every 5 weeks cyanocobalamin (vitamin B-12) 1,000 mcg/mL kit 0 mcg SQ MONTHLY Patient Comments: 05/26- no fill history unable to verify sildenafil (pulm.hypertension) 20 mg tablet 20 mg PO .as needed Qty: 10 5RF Patient Comments: 05/26- last filled 10/03/24 Rx Instructions: Take 1 hour before planned intercourse on empty stomach. Can titrate up to 100 mg at separate times. ondansetron HCl 4 mg tablet 0 mg PO Q6H PRN (Reason: nausea and vomiting) Patient Comments: 05/26- no fill history unable to verify meclizine 25 mg tablet 0 mg PO QID PRN (Reason: dizziness) Patient Comments: 05/26- no fill history unable to verify lansoprazole 30 mg capsule,delayed release(DR/EC) 30 mg PO DAILY Rx Instructions: TAKE 1 CAPSULE DAILY azelastine 137 mcg (0.1 %) spray,non-aerosol 0 spray intranasal DAILY Patient Comments: last filled 03/02 30 day supply Rx Instructions: SPRAY 2 SPRAYS INTRANASALLY DAILY zolpidem 10 mg tablet 0 mg PO HS PRN (Reason: insomnia) Patient Comments: 05/26- no fill history unable to verify albuterol sulfate [Ventolin HFA] 90 mcg/actuation HFA aerosol inhaler 0 inh inhalation UD PRN (Reason: shortness of breath or wheezing) Patient Comments: 05/26- no fill history unable to verify Rx Instructions: 1-2 INH 4-6 PRN; mesalamine [Lialda] 1.2 gram tablet,delayed release (DR/EC) 0 g PO BID Patient Comments: 05/26- last filled 01/05 90 day supply No Action (DME) [employer] 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 See Rx Instructions .ROUTE .MEDSUPPLY Qty: 1 0RF Rx Instructions: As directed Discharge Orders: Discharge Order (Routine); Ordered 05/28/25 Ordered By: Alma Zayas Admission Data Admit Date/Time: 05/26/25 18:26 Attending Provider: Rambo Bass Admit Provider: Micha Jain Primary Care Provider: Nanette Melo Other Providers: Micha Jain Other Interventions: Discharge Summary Assessment (RN) Last Done: 05/28/25 10:21 Hospital Stay Data Consultations 05/26/25 17:15 ED Decision to Admit Stat Diagnostic Imagining Performed 05/26/25 16:15 US abdomen limited Stat Pending Results Patient Have Any Pending Studies at Discharge: Yes Discharge Instructions Given to Patient (Per Discharging Provider) Mr. Harris, Oscar were recently hospitalized for muscle/joint aches, fever, chills, diarrhea, and abdominal pain. You were found to have two infectious organisms in your stool sample: EPEC which is a form of E. coli and Yersinia. You were treated with IV antibiotics and IV fluids with improvement of your symptoms. Please see recommendations below regarding your discharge. Please take Ciprofloxacin twice daily for the next 1.5 days. Your next dose will be this evening, 05/28. Please take with food to avoid GI upset. Please use Zofran as needed every 6 hours for nausea and vomiting. Please contact your pediatric allergist regarding your Inflectra infusion. Please resume the remainder of your outpatient medications on discharge. Please follow up with your PCP within 1-2 weeks of discharge. Best of luck! Alma Zayas PA-C Supervising Physician Co-Signing Physician Notes The patient was not seen by me. The chart was reviewed. Case discussed with KAMRON Tinoco. Agree with assessment and plan Total Time Total Time Spent Total Time Spent (In Minutes): 40 Total Time Includes: Examination of the Patient, Discharge Planning and Medication Reconciliation Coding Level of Care Code 64264 INP/OBS DISCH >30 MIN Diagnoses Infectious colitis A09 Rhinovirus infection B34.8 Crohn disease K50.90 Hypertension I10
--- NOTE | 2025-05-28 15:14 | Electrocardiogram Report ---
Test Reason : Blood Pressure : */* mmHG Vent. Rate : 113 BPM Atrial Rate : 113 BPM P-R Int : 166 ms QRS Dur : 78 ms QT Int : 312 ms P-R-T Axes : 50 39 57 degrees QTcB Int : 427 ms Sinus tachycardia Possible Left atrial enlargement Borderline ECG When compared with ECG of 26-May-2025 02:45, T wave inversion no longer evident in Inferior leads Confirmed by Hong Darby ([id number]) on 05/28/2025 3:13:58 PM Referred By: REFERRED SELF Confirmed By: Hong Darby
--- NOTE | 2025-05-31 06:05 | Coding Query ---
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 Please assist us with the question(s) below: In responding to this query, please exercise your independent professional judgement. The fact that a question is asked does not imply that any particular answer is desired or expected. We appreciate your clarification on this issue. The medical record reflects the following clinical findings: Pt admitted s/p Colonoscopy with fever, chills, WBC 11.95.Treated with IV Tylenol, IV Cipro & IV Zosyn, Pt immunosuppresed on immunotherapy. ED and H/P documented Sepsis. Please check below if applicable. ____ ( ) Sepsis following a procedure ( )Bacteremia (Nonspecific laboratory finding of bacteria in the blood) Specify Organism ( ) Present on Admission ( ) Not present on admission ( ) Unable to clinically determine ( ) Septicemia (Systemic disease associated with the presence of pathogenic microorganisms in the blood): Specify Organism () Present on Admission () Not present on admission () Unable to clinically determine ( x) Sepsis Specify Organism Specify Associated Condition/Diagnosis ( x) Present on Admission ( ) Not present on admission ( ) Unable to clinically determine ( ) Other, patient has: MTDD
== END 2025-05-28 10:40 | disposition home or self-care (01) ==
LOC: ED 15:41 → INTOOBSV 18:26 → EDINP 18:26 → SUATTDRO 18:26 → 2W 19:29

== ENCOUNTER 2025-06-01 21:56 | Observation (INO) ==
--- NOTE | 2025-06-01 22:10 | Emergency Department Note ---
Impression & Plan NATHAN (acute kidney injury), Hydronephrosis with urinary obstruction due to ureteral calculus ED Provider Note CHIEF COMPLAINT: Flank pain HISTORY OF PRESENTING ILLNESS: Patient is a pleasant 55-year-old male who arrives to the emergency department for evaluation of left flank pain. Patient states he began to have symptoms earlier in the week, when he was in [place]. He reports he visited [facility] emergency department, and was diagnosed with a left kidney stone, nonobstructing at that time. He was provided pain control, which she states helped for short period of time, however his pain returned. He reports no fever, or difficulty with urination. He does report nausea and vomiting, and inability to keep down food and fluids. He is currently afebrile, with hypertension, and slight tachycardia. REVIEW OF SYSTEMS: See HPI for pertinent positives and pertinent negatives. ALLERGIES: See below MEDICATIONS: See below PAST MEDICAL HISTORY: See below PHYSICAL EXAM: VITALS: Vitals are noted on the nurse's note and reviewed by myself. Vital signs stable. GENERAL: 55-year-old male, in no acute distress, nondiaphoretic, well-developed well-nourished. SKIN: The skin was without rashes, erythema, edema, or bruising. HEAD: Normocephalic atraumatic. HEART: Regular rate and rhythm without murmurs gallops or rubs. [] LUNGS: Clear to auscultation bilaterally without wheezes, rales or rhonchi. No retractions or accessory muscle use. ABDOMEN: Positive bowel sounds x 4. Soft, tenderness to palpation left lateral flank. MUSCULOSKELETAL: No muscle atrophy, erythema, or edema noted. Normal gait. Strength 5/5 throughout. NEURO: Patient was alert and oriented to person place and time. No focal neurological deficits. DIFFERENTIAL DIAGNOSIS: Appendicitis, testicular torsion, infections, diverticulitis, UTI, obstruction, mesenteric ischemia, aortic pathology, inflammatory bowel disease, renal colic, PUD, pancreatitis, biliary pathology, hernia, volvulus, constipation, as well as other pathologies. ED COURSE AND MEDICAL DECISION MAKING: HISTORY FROM INDEPENDENT HISTORIAN: at bedside serving as secondary historian MEDICATIONS GIVEN: 15 mg IV Toradol, 1 L NSS bolus, 4 mg IV Zofran INTERPRETATION OF LABS: I interpreted the labs with full lab results as below in the lab section of this note. Pertinent lab results discussed in the MDM section below. INTERPRETATION OF IMAGING: Imaging studies were interpreted by myself and read by radiology as per the imaging section of this note. MDM SUMMARY: The patient is a pleasant, 55-year-old male who arrives to the emergency department for evaluation of the above-stated complaint. Saline lock was established, lab work was obtained. CBC shows no leukocytosis, stable anemia. CMP shows acute kidney injury, BUN 24, creatinine 2.06. Lipase negative. Urinalysis 1+ ketones, negative nitrites, negative leukocyte Estrace. Initial imaging with KUB was attempted, to visualize known stone, however was unsuccessful. CT imaging of the abdomen and pelvis without IV contrast was obtained which shows interval development of mild left hydronephrosis and hydroureter secondary to a 3 mm distal ureteral calculus. There is also an additional nonobstructing left renal calculus present, as well as nonspecific prostate gland enlargement. Patient was provided fluids, pain control, and IV Zofran as above. Due to patient's NATHAN, as well as trial of passage which is failed on an outpatient basis, he will require admission to the hospital with pain control, fluid resuscitation, and urology evaluation. Patient was admitted to the [facility] hospitalist group, Dr. Madonna Madrid agreed to accept the patient under her care. Please refer to her documentation for further patient workup and care. DIAGNOSIS: Obstructing nephrolithiasis, NATHAN The chart was completed utilizing [employer] Speech voice recognition software. Grammatical errors, random word insertions, pronoun errors, and incomplete sentences are an occasional consequence of this system due to software limitations, ambient noise, and hardware issues. Any formal questions or concerns about the content, text, or information contained within the body of this dictation should be directly addressed to the provider for clarification. Past Med/Surg History Problem List (Updated 06/02/25 @ 03:08 by HARINI Zheng) Hydronephrosis with urinary obstruction due to ureteral calculus (Acute) NATHAN (acute kidney injury) (Acute) Enteroinvasive Escherichia coli infection (Acute) Fever (Acute) Sepsis (Acute) Rhinovirus infection Enterovirus infection Hypertension Infectious colitis H/O esophagogastroduodenoscopy (Acute) S/P colonoscopy with polypectomy (Acute) Body aches (Acute) Chills (Acute) Fever (Acute) Abdominal bloating (Acute) Erectile dysfunction Peyronie's disease Cervical radiculopathy Diarrhea HTN, goal below 140/90 Insomnia Abdominal hernia Anemia (Chronic) Anxiety (Chronic) Aortic root dilatation (Chronic) Fatigue (Chronic) Hyperglycemia (Chronic) Laryngopharyngeal reflux disease (Chronic) Renal cyst (Chronic) Vitamin B12 deficiency (Chronic) Crohn disease (Chronic) Medical History (Updated 06/02/25 @ 03:08 by HARINI Zheng) Acute Crohn's disease History of squamous cell carcinoma left patel COVID-19 virus infection Pectus excavatum repair Surgical History S/P hernia surgery H/O colectomy S/P partial colectomy Family History Father Hypertension PMR (polymyalgia rheumatica) Mother Hypertension Daughter Sinusitis Acute lymphoblastic leukemia (ALL) Grandfather (Paternal) Myocardial infarction Grandfather (Maternal) Heart disease Brother Hypertension Brother No problems noted. 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 How many Children do You have: 1 Feels Safe at Home: Yes Childhood Exposure to Second-Hand Smoke: No Diet: regular caffeine: Yes during the past year weight has: remained stable Dental Care, Regularly: Yes Physical Activity Frequency: Daily Seatbelt Use: always Sunscreen Use: Yes Assistive Devices: CPAP and Glasses Allergies Allergies Allergy/AdvReac Type Severity Reaction Status Date / Time Iodinated Contrast Media Allergy Unknown Difficulty Verified 06/01/25 08:32 Breathing Home Meds Home Medications Medication Instructions Recorded Confirmed cyanocobalamin (vitamin B-12) 0 mcg subcut MONTHLY 05/28/19 06/02/25 1,000 mcg/mL injection kit infliximab-dyyb 100 mg intravenous 10 mg IV .10mg/kg Q 5 weeks 05/10/25 06/02/25 solution (Inflectra) albuterol sulfate 90 mcg/actuation 0 inh inhalation UD PRN shortness 05/26/25 06/02/25 aerosol inhaler (Ventolin HFA) of breath or wheezing azelastine 137 mcg (0.1 %) nasal 0 spray intranasal DAILY 05/26/25 06/02/25 spray lansoprazole 30 mg capsule,delayed 30 mg PO DAILY 05/26/25 06/02/25 release (Prevacid) mesalamine 1.2 gram tablet,delayed 1.2 g PO UD 05/26/25 06/02/25 release (Lialda) zolpidem 10 mg tablet (Ambien) 0 mg PO HS PRN insomnia 05/26/25 06/02/25 sildenafil (pulm.hypertension) 20 20 mg PO .as needed 06/01/25 06/02/25 mg tablet (Revatio) Previous Rx's Medication Instructions Recorded inhalational spacing device #1 ea 10/18/19 (LiteAire MDI Chamber) lorazepam 1 mg tablet 1 mg PO BID PRN anxiety #60 tabs 10/30/24 losartan 100 mg tablet 100 mg PO DAILY #90 tabs 10/30/24 famotidine 40 mg tablet 40 mg PO DAILY #90 tabs 02/07/25 ondansetron 4 mg disintegrating 4 mg PO Q6H PRN nausea and 05/28/25 tablet vomiting #30 tabs Results & Data (ED) Vital Signs Vital Signs - 24 hr 06/01/25 22:00 06/01/25 22:47 06/01/25 22:55 Temperature 36.5 C Temperature Source Temporal Artery Scan Pulse Rate 105 H 100 H Pulse Rate [Right Finger] 99 H Pulse Rhythm [Right Finger] Pulse Strength [Right Finger] Respiratory Rate 20 18 Respiratory Effort / Characteristics Non-Labored Spontaneous Non-Labored Spontaneous Respiratory Depth Normal Normal Respiratory Pattern Regular Blood Pressure 181/99 H Blood Pressure [Right Arm] 156/95 H Blood Pressure Mean 126 Blood Pressure Mean [Right Arm] 115 Blood Pressure Position Lying Blood Pressure Position [Right Arm] Pulse Oximetry 98 94 Oxygen Delivery Method Room Air Room Air Sepsis Recent Fever Within 48 Hours No Sepsis New/Unexplained Change in Mental Status N/A Sepsis Action Taken by Nursing No Action Required 06/02/25 00:00 06/02/25 00:59 Temperature Temperature Source Pulse Rate Pulse Rate [Right Finger] 100 H 96 H Pulse Rhythm [Right Finger] Regular Pulse Strength [Right Finger] Normal Respiratory Rate 20 20 Respiratory Effort / Characteristics Non-Labored Spontaneous Non-Labored Spontaneous Respiratory Depth Normal Normal Respiratory Pattern Regular Regular Blood Pressure Blood Pressure [Right Arm] 165/105 H 168/106 H Blood Pressure Mean Blood Pressure Mean [Right Arm] 125 126 Blood Pressure Position Blood Pressure Position [Right Arm] Lying Pulse Oximetry 92 95 Oxygen Delivery Method Room Air Room Air Sepsis Recent Fever Within 48 Hours Sepsis New/Unexplained Change in Mental Status Sepsis Action Taken by Nursing Laboratory Data 06/01/25 22:28 06/01/25 22:28 Lab Results 06/01/25 06/01/25 Range/Units 22:28 23:14 WBC 10.61 (4.8-10.8) K/ul RBC 3.66 L (4.70-6.10) M/uL Hgb 10.7 L (14.0-18.0) g/dl Hct 31.2 L (42.0-52.0) % MCV 85.2 (80.0-100.0) fL MCH 29.2 (25.0-34.0) pg MCHC 34.3 (32.0-36.0) g/dL RDW Std Deviation 41.6 (36.4-46.3) fL RDW Coeff of Kamila 13.4 (11.5-14.5) % Plt Count 221 (130-400) K/uL MPV 9.1 L (9.4-12.4) fL Immature Gran % (Auto) 0.3 % Neut % (Auto) 74.3 % Lymph % (Auto) 14.9 % Foard % (Auto) 9.3 % Eos % (Auto) 0.8 % Baso % (Auto) 0.4 % Neut # (Auto) 7.88 H (1.40-6.50) K/uL Lymph # (Auto) 1.58 (1.20-3.40) K/uL Foard # (Auto) 0.99 H (0.11-0.59) K/uL Eos # (Auto) 0.09 (0.00-0.50) K/uL Baso # (Auto) 0.04 (0.00-0.20) K/uL Immature Gran # (Auto) 0.03 (0.01-0.20) K/uL Sodium 136 (136-145) mmol/L Potassium 3.9 (3.5-5.1) mmol/L Chloride 104 (98-107) mmol/L Carbon Dioxide 24 (21-32) mmol/L Anion Gap 8 (3-11) BUN 24 H (6-23) mg/dl Creatinine 2.06 H (0.6-1.4) mg/dl Est Cr Clr Drug Dosing 56.4 ml/min eGFR 37.11 BUN/Creatinine Ratio 11.7 (10-20) Glucose 115 H (70-99(Fasting)) mg/dl Calcium 8.7 (8.6-10.3) mg/dl Total Bilirubin 0.8 (0.2-1.0) mg/dl AST 17 (13-39) U/L ALT 46 (7-52) U/L Alkaline Phosphatase 109 H (34-104) U/L Total Protein 6.9 (6.0-8.3) gm/dl Albumin 3.7 (3.4-5.0) gm/dl Globulin 3.2 (2.5-4.0) gm/dl Albumin/Globulin Ratio 1.2 (0.9-2) Lipase 9 L (11-82) U/L Urine Color Yellow Urine Appearance Clear (Clear) Urine pH 5.0 (4.5-7.5) Ur Specific [place] 1.024 (1.000-1.030) Urine Protein Negative (Negative) Urine Glucose (UA) Negative (Negative) Urine Ketones 1+ H (Negative) Urine Blood Negative (Negative) Urine Nitrite Negative (Negative) Urine Bilirubin Negative (Negative) Urine Urobilinogen Negative (Negative) Ur Leukocyte Esterase Negative (Negative) Urine Comment Administered Medications Discontinued Medications Sodium Chloride (Nss) 1,000 mls @ 999 mls/hr IV .Q1H1M ONE Stop: 06/01/25 23:15 Last Infusion: 06/02/25 00:17 Dose: Infused Documented By: Admin: 06/01/25 22:40 Dose: 999 mls/hr Documented By: CTK Ketorolac Tromethamine (Ketorolac Tromethamine 15 Mg/Ml Vial) 15 mg IV NOW ONE Stop: 06/01/25 22:16 Last Admin: 06/01/25 22:39 Dose: 15 mg Documented By: CTK Ondansetron HCl (Ondansetron Inj 2 Mg/Ml 2 Ml Vial) 4 mg IV NOW STA Stop: 06/01/25 22:16 Last Admin: 06/01/25 22:39 Dose: 4 mg Documented By: CTK Imaging Data Radiologist's Impression: KUB X-Ray 06/01/25 22:15 Exam(s): XR KUB EXAM: XR Abdomen, 1 View CLINICAL HISTORY: Stone. TECHNIQUE: Frontal supine view of the abdomen/pelvis. COMPARISON: No relevant prior studies available. FINDINGS: Gastrointestinal tract: Nonspecific bowel gas pattern. No dilation. Organs: There is a 4.1 cm right renal calculus. Bones/joints: S shaped scoliosis is noted. No acute fracture. IMPRESSION: There is a 4.1 cm right renal calculus. Electronically signed by: Esmer Gaitan MD 06/02/25 00:16 AM Abdomen/Pelvis CT 06/01/25 22:48 Exam(s): CT ABDOMEN + PELVIS Without Contrast EXAM: CT Abdomen and Pelvis Without Intravenous Contrast CLINICAL HISTORY: Flank Pain. TECHNIQUE: Axial computed tomography images of the abdomen and pelvis without intravenous contrast. CTDI is 27 mGy and DLP is 1558 mGy-cm. Automated exposure control was utilized for the study. A dose lowering technique was utilized adhering to the principles of ALARA. COMPARISON: CT abdomen and pelvis 05/26/2025 FINDINGS: Lung bases: Unremarkable. No mass. No consolidation. ABDOMEN: Liver: Unremarkable. Gallbladder and bile ducts: Unremarkable. No calcified stones. No ductal dilation. Pancreas: Unremarkable. No ductal dilation. Spleen: Unremarkable. No splenomegaly. Adrenals: Unremarkable. No mass. Kidneys and ureters: Interval development of mild left hydronephrosis and hydroureter secondary to a 3 mm distal ureteral calculus. Additional nonobstructing left renal calculus is present. Simple right appearing renal cysts are present, no follow-up is needed. No right hydronephrosis. Stomach and bowel: There are surgical changes of the colon. No obstruction. No mucosal thickening. PELVIS: Appendix: No findings to suggest acute appendicitis. Bladder: Unremarkable. No stones. Reproductive: Nonspecific prostate gland enlargement. ABDOMEN and PELVIS: Intraperitoneal space: Unremarkable. No free air. No significant fluid collection. Bones/joints: No acute fracture. No dislocation. There is a S shaped scoliosis of the thoracic spine. Moderate degenerative changes of both hips. Soft tissues: Small bilateral fat-containing inguinal hernias. Vasculature: Unremarkable. No abdominal aortic aneurysm. Lymph nodes: Unremarkable. No enlarged lymph nodes. IMPRESSION: 1. Interval development of mild left hydronephrosis and hydroureter secondary to a 3 mm distal ureteral calculus. 2. Nonspecific prostate gland enlargement. 3. Additional nonobstructing left renal calculus is present. Electronically signed by: Esmer Gaitan MD 06/02/25 00:28 AM Discharge Plan Visit Data Chief Complaint: Kidney Stone Stated Complaint: KIDNEY STONE ED Provider: Santana Bell ED Midlevel Provider: Chely Skinner Discharge Problem: NATHAN (acute kidney injury), Hydronephrosis with urinary obstruction due to ureteral calculus Patient Disposition: Admitted As Inpatient Condition: Fair Discharge Instructions Interventions: ED Discharge Assessment Last Done: 06/02/25 02:36
[2025-06-01] MEDS: KETOROLAC TROMETHAMINE 15 MG/ML VIAL IV ONE (22:39)
[2025-06-01] MEDS: ONDANSETRON INJ 2 MG/ML 2 ML VIAL IV STA (22:39)
[2025-06-01 22:40] LABS: Hematocrit (blood only) 31.2 % (42.0-52.0); Hemoglobin 10.7 g/dl (14.0-18.0); Immature Granulocytes # (auto) 0.03 K/uL (0.01-0.20); Immature Granulocytes % (auto) 0.3 %; Mean Corpuscular Hemoglobin 29.2 pg (25.0-34.0); Mean Corpuscular Volume 85.2 fL (80.0-100.0); Platelet Count 221 K/uL (130-400); RDW Standard Deviation 41.6 fL (36.4-46.3); Red Blood Count 3.66 M/uL (4.70-6.10); White Blood Count 10.61 K/ul (4.8-10.8)
[2025-06-01] MEDS: SODIUM CHLORIDE 0.9% 1,000 ML IV ONE (22:40)
[2025-06-01 22:58] LABS: Alanine Aminotransferase 46.0 U/L (7-52); Albumin Globulin Ratio 1.2 (0.9-2); Alkaline Phosphatase 109.0 U/L (34-104); Anion Gap 8.0 (3-11); Bilirubin,Total 0.8 mg/dl (0.2-1.0); Blood Urea Nitrogen 24.0 mg/dl (6-23); Calcium 8.7 mg/dl (8.6-10.3); Carbon Dioxide 24.0 mmol/L (21-32); Chloride 104.0 mmol/L (98-107); Creatinine Clr Calc Pharmacy 56.4 ml/min; Globulin 3.2 gm/dl (2.5-4.0); Glucose 115.0 mg/dl (70-99(Fasting)); Lipase 9.0 U/L (11-82); Potassium 3.9 mmol/L (3.5-5.1); Sodium 136.0 mmol/L (136-145); Total Protein 6.9 gm/dl (6.0-8.3)
[2025-06-01 23:38] LABS: Appearance Urine Clear (Clear); Glucose Urine UA Negative (Negative)
--- NOTE | 2025-06-02 00:17 | XRay Report ---
Exam(s): XR KUB EXAM: XR Abdomen, 1 View CLINICAL HISTORY: Stone. TECHNIQUE: Frontal supine view of the abdomen/pelvis. COMPARISON: No relevant prior studies available. FINDINGS: Gastrointestinal tract: Nonspecific bowel gas pattern. No dilation. Organs: There is a 4.1 cm right renal calculus. Bones/joints: S shaped scoliosis is noted. No acute fracture. IMPRESSION: There is a 4.1 cm right renal calculus. Electronically signed by: Esmer Gaitan MD 06/02/25 00:16 AM
--- NOTE | 2025-06-02 00:29 | CT Scan Report ---
Exam(s): CT ABDOMEN + PELVIS Without Contrast EXAM: CT Abdomen and Pelvis Without Intravenous Contrast CLINICAL HISTORY: Flank Pain. TECHNIQUE: Axial computed tomography images of the abdomen and pelvis without intravenous contrast. CTDI is 27 mGy and DLP is 1558 mGy-cm. Automated exposure control was utilized for the study. A dose lowering technique was utilized adhering to the principles of ALARA. COMPARISON: CT abdomen and pelvis 05/26/2025 FINDINGS: Lung bases: Unremarkable. No mass. No consolidation. ABDOMEN: Liver: Unremarkable. Gallbladder and bile ducts: Unremarkable. No calcified stones. No ductal dilation. Pancreas: Unremarkable. No ductal dilation. Spleen: Unremarkable. No splenomegaly. Adrenals: Unremarkable. No mass. Kidneys and ureters: Interval development of mild left hydronephrosis and hydroureter secondary to a 3 mm distal ureteral calculus. Additional nonobstructing left renal calculus is present. Simple right appearing renal cysts are present, no follow-up is needed. No right hydronephrosis. Stomach and bowel: There are surgical changes of the colon. No obstruction. No mucosal thickening. PELVIS: Appendix: No findings to suggest acute appendicitis. Bladder: Unremarkable. No stones. Reproductive: Nonspecific prostate gland enlargement. ABDOMEN and PELVIS: Intraperitoneal space: Unremarkable. No free air. No significant fluid collection. Bones/joints: No acute fracture. No dislocation. There is a S shaped scoliosis of the thoracic spine. Moderate degenerative changes of both hips. Soft tissues: Small bilateral fat-containing inguinal hernias. Vasculature: Unremarkable. No abdominal aortic aneurysm. Lymph nodes: Unremarkable. No enlarged lymph nodes. IMPRESSION: 1. Interval development of mild left hydronephrosis and hydroureter secondary to a 3 mm distal ureteral calculus. 2. Nonspecific prostate gland enlargement. 3. Additional nonobstructing left renal calculus is present. Electronically signed by: Esmer Gaitan MD 06/02/25 00:28 AM
--- NOTE | 2025-06-02 01:22 | History & Physical Report ---
Date of Service June 02, 2025 Assessment & Plan (1) Hydronephrosis with urinary obstruction due to ureteral calculus: (2) NATHAN (acute kidney injury): (3) Hypertension: (4) Anxiety: Plan 55yo male with obstructing left renal stone #hydronephrosis with urinary obstruction due to ureteral calculus - patient failed trial of outpatient expulsive therapy. Developed constipation following use of Oxycodone -Admit to medical -Maintain NPO for now -IVF - LR at 125mL/hr x 2L -Urine strainer -Pain control with Tylenol, Morphine PRN -Bowel regimen with Docusate/Senna BID scheduled, Miralax 17mg po BID scheduled -Zofran PRN nausea -Flomax 0.4mg po qAM -Urology consultation appreciated #NATHAN - elevation of Cr to 2.06 from last 1.34. Likely pre-renal etiology. Patient reports he has been unable to keep down food or liquids for the last day. -LR at 125mL/hr x 2L -Avoid nephrotoxic agents -Renal dosing where needed -Repeat chemistry in AM #Hypertension -Pain control as above -Hold Losartan for now in setting of elevated Cr #Crohns -Continue Mesalamine -Bowel regimen #Anxiety/Mental health -Ativan PRN -Continue Ambien at home dose History of Present Illness Chief Complaint: left flank pain Primary Care Provider: aNnette Melo MD Harjit Harris is a 55yo male with history of HTN, Crohns colitis with multiple prior surgeries presenting with left flank pain. 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 Patient developed sharp, stabbing pain on the left flank and was diagnosed with a kidney stone. He was started on Oxycodone, Flomax and Toradol and has been taking these with no improvement. He reports severe constipation which developed after starting the Oxycodone. Patient has had significant nausea, vomiting and PO intolerance No additional complaints - no fever, chills, urinary complaints Allergies Allergy/AdvReac Type Severity Reaction Status Date / Time Iodinated Contrast Media Allergy Unknown Difficulty Verified 06/01/25 08:32 Breathing Home Medications Medication Instructions Recorded Confirmed Type cyanocobalamin (vitamin B-12) 0 mcg subcut MONTHLY 05/28/19 06/02/25 History 1,000 mcg/mL injection kit inhalational spacing device #1 ea 10/18/19 05/30/25 Rx (LiteAire MDI Chamber) lorazepam 1 mg tablet 1 mg PO BID PRN anxiety #60 tabs 10/30/24 06/02/25 Rx losartan 100 mg tablet 100 mg PO DAILY #90 tabs 10/30/24 06/02/25 Rx famotidine 40 mg tablet 40 mg PO DAILY #90 tabs 02/07/25 06/02/25 Rx infliximab-dyyb 100 mg intravenous 10 mg IV .10mg/kg Q 5 weeks 05/10/25 06/02/25 History solution (Inflectra) albuterol sulfate 90 mcg/actuation 0 inh inhalation UD PRN shortness 05/26/25 06/02/25 History aerosol inhaler (Ventolin HFA) of breath or wheezing azelastine 137 mcg (0.1 %) nasal 0 spray intranasal DAILY 05/26/25 06/02/25 History spray lansoprazole 30 mg capsule,delayed 30 mg PO DAILY 05/26/25 06/02/25 History release (Prevacid) mesalamine 1.2 gram tablet,delayed 1.2 g PO UD 05/26/25 06/02/25 History release (Lialda) zolpidem 10 mg tablet (Ambien) 0 mg PO HS PRN insomnia 05/26/25 06/02/25 History ondansetron 4 mg disintegrating 4 mg PO Q6H PRN nausea and 05/28/25 06/02/25 Rx tablet vomiting #30 tabs sildenafil (pulm.hypertension) 20 20 mg PO .as needed 06/01/25 06/02/25 History mg tablet (Revatio) Past Med/Surg History Problem List Hydronephrosis with urinary obstruction due to ureteral calculus (Acute) NATHAN (acute kidney injury) (Acute) Enteroinvasive Escherichia coli infection (Acute) Fever (Acute) Sepsis (Acute) Rhinovirus infection Enterovirus infection Hypertension Infectious colitis H/O esophagogastroduodenoscopy (Acute) S/P colonoscopy with polypectomy (Acute) Body aches (Acute) Chills (Acute) Fever (Acute) Abdominal bloating (Acute) Erectile dysfunction Peyronie's disease Cervical radiculopathy Diarrhea HTN, goal below 140/90 Insomnia Abdominal hernia Anemia (Chronic) Anxiety (Chronic) Aortic root dilatation (Chronic) Fatigue (Chronic) Hyperglycemia (Chronic) Laryngopharyngeal reflux disease (Chronic) Renal cyst (Chronic) Vitamin B12 deficiency (Chronic) Crohn disease (Chronic) Medical History Acute Crohn's disease History of squamous cell carcinoma left patel COVID-19 virus infection Pectus excavatum repair Surgical History S/P hernia surgery H/O colectomy S/P partial colectomy Family History Father Hypertension PMR (polymyalgia rheumatica) Mother Hypertension Daughter Sinusitis Acute lymphoblastic leukemia (ALL) Grandfather (Paternal) Myocardial infarction Grandfather (Maternal) Heart disease Brother Hypertension Brother No problems noted. 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 How many Children do You have: 1 Feels Safe at Home: Yes Childhood Exposure to Second-Hand Smoke: No Diet: regular caffeine: Yes during the past year weight has: remained stable Dental Care, Regularly: Yes Physical Activity Frequency: Daily Seatbelt Use: always Sunscreen Use: Yes Assistive Devices: CPAP and Glasses Review of Systems Review of Systems: All systems reviewed & are unremarkable except as noted in HPI & below Physical Exam Physical Exam: General: patient resting comfortably, NAD, non-toxic in appearance, AA&O x 4 Skin: warm, dry, intact, no rashes or lesions HEENT: NC/AT, PERRL, EOMI, anicteric sclera, conjunctiva without injection, external ear normal to inspection and nontender, nares patent, moist mucus membranes, dentition intact, no oropharyngeal lesions, neck supple, trachea midline, no LAD, no thyromegaly, no JVD Heart: +S1/S2, regular, no m/r/g Lungs: equal air entry bilaterally, no rales/rhonchi/wheezes Abd: +BS, soft, NT/ND, no masses/organomegaly/ascites, left flank pain Ext: warm, 2+ pulses in UE/LE bilaterally, no clubbing/cyanosis or edema Neuro: nonfocal, patient AA&O x 4, speech intact, no facial droop, moving all extremities on command with equal strength 5/5 Results & Data Results & Data Vital Signs (Past 12 Hours) Vital Signs Temp Pulse Pulse Resp BP BP Pulse Ox 06/02/25 00:59 96 H 20 168/106 H 95 06/02/25 00:00 100 H 20 165/105 H 92 06/01/25 22:55 99 H 18 156/95 H 94 06/01/25 22:47 100 H 06/01/25 22:00 36.5 C 105 H 20 181/99 H 98 O2 Del Method 06/02/25 00:59 Room Air 06/02/25 00:00 Room Air 06/01/25 22:55 Room Air 06/01/25 22:47 06/01/25 22:00 Room Air Laboratory Results Laboratory Results WBC 10.61 K/ul (4.8-10.8) 06/01/25 22:28 RBC 3.66 M/uL (4.70-6.10) L 06/01/25 22:28 Hgb 10.7 g/dl (14.0-18.0) L 06/01/25 22:28 Hct 31.2 % (42.0-52.0) L 06/01/25 22:28 MCV 85.2 fL (80.0-100.0) 06/01/25 22:28 MCH 29.2 pg (25.0-34.0) 06/01/25 22:28 MCHC 34.3 g/dL (32.0-36.0) 06/01/25 22:28 RDW Std Deviation 41.6 fL (36.4-46.3) 06/01/25 22: RDW Coeff of Kamila 13.4 % (11.5-14.5) 06/01/25: Plt Count 221 K/uL (130-400) 06/01/25: MPV 9.1 fL (9.4-12.4) L 06/01/25: Immature Gran % (Auto) 0.3 % 06/01/25: Neut % (Auto) 74.3 % 06/01/25: Lymph % (Auto) 14.9 % 06/01/25: [place] % (Auto) 9.3 % 06/01/25: Eos % (Auto) 0.8 % 06/01/25: Baso % (Auto) 0.4 % 06/01/25 Neut # (Auto) 7.88 K/uL (1.40-6.50) H 06/01/25: Lymph # (Auto) 1.58 K/uL (1.20-3.40) 06/01/25: [place] # (Auto) 0.99 K/uL (0.11-0.59) H 06/01/25: Eos # (Auto) 0.09 K/uL (0.00-0.50) 06/01/25: Baso # (Auto) 0.04 K/uL (0.00-0.20) 06/01/25: Immature Gran # (Auto) 0.03 K/uL (0.01-0.20) 06/01/25: Sodium 136 mmol/L (136-145) 06/01/25: Potassium 3.9 mmol/L (3.5-5.1) 06/01/25: Chloride 104 mmol/L (98-107) 06/01/25: Carbon Dioxide 24 mmol/L (21-32) 06/01/25: Anion Gap 8 (3-11) 06/01/25 BUN 24 mg/dl (6-23) H 06/01/25: Creatinine 2.06 mg/dl (0.6-1.4) H 06/01/25 Est Cr Clr Drug Dosing 56.4 ml/min 06/01/25 eGFR 37.11 08/22/25 22:28 BUN/Creatinine Ratio 11.7 (10-20) 06/01/25 22:28 Glucose 115 mg/dl (70-99(Fasting)) H 06/01/25 22:28 Calcium 8.7 mg/dl (8.6-10.3) 06/01/25 22:28 Total Bilirubin 0.8 mg/dl (0.2-1.0) 06/01/25 22: AST 17 U/L (13-39) 06/01/25 22: ALT 46 U/L (7-52) 06/01/25 22:28 Alkaline Phosphatase 109 U/L (34-104) H 06/01/25 22:28 Total Protein 6.9 gm/dl (6.0-8.3) 06/01/25 22: Albumin 3.7 gm/dl (3.4-5.0) 06/01/25 22: Globulin 3.2 gm/dl (2.5-4.0) 06/01/25 22: Albumin/Globulin Ratio 1.2 (0.9-2) 06/01/25 22:28 Lipase 9 U/L (11-82) L 06/01/25 22:28 Urine Color Yellow 06/01/25 23:14 Urine Appearance Clear (Clear) 06/01/25 23:14 Urine pH 5.0 (4.5-7.5) 06/01/25 23:14 Ur Specific [place] 1.024 (1.000-1.030) 06/01/25 23:14 Urine Protein Negative (Negative) 06/01/25 23:14 Urine Glucose (UA) Negative (Negative) 06/01/25 23:14 Urine Ketones 1+ (Negative) H 06/01/25 23:14 Urine Blood Negative (Negative) 06/01/25 23:14 Urine Nitrite Negative (Negative) 06/01/25 23:14 Urine Bilirubin Negative (Negative) 06/01/25 23:14 Urine Urobilinogen Negative (Negative) 06/01/25 23:14 Ur Leukocyte Esterase Negative (Negative) 06/01/25 23:14 Urine Comment 06/01/25 23:14 Impressions KUB X-Ray 06/01/25 22:15 Exam(s): XR KUB EXAM: XR Abdomen, 1 View CLINICAL HISTORY: Stone. TECHNIQUE: Frontal supine view of the abdomen/pelvis. COMPARISON: No relevant prior studies available. FINDINGS: Gastrointestinal tract: Nonspecific bowel gas pattern. No dilation. Organs: There is a 4.1 cm right renal calculus. Bones/joints: S shaped scoliosis is noted. No acute fracture. IMPRESSION: There is a 4.1 cm right renal calculus. Electronically signed by: Esmer Gaitan MD 06/02/25 00:16 AM Abdomen/Pelvis CT 06/01/25 22:48 Exam(s): CT ABDOMEN + PELVIS Without Contrast EXAM: CT Abdomen and Pelvis Without Intravenous Contrast CLINICAL HISTORY: Flank Pain. TECHNIQUE: Axial computed tomography images of the abdomen and pelvis without intravenous contrast. CTDI is 27 mGy and DLP is 1558 mGy-cm. Automated exposure control was utilized for the study. A dose lowering technique was utilized adhering to the principles of ALARA. COMPARISON: CT abdomen and pelvis 05/26/2025 FINDINGS: Lung bases: Unremarkable. No mass. No consolidation. ABDOMEN: Liver: Unremarkable. Gallbladder and bile ducts: Unremarkable. No calcified stones. No ductal dilation. Pancreas: Unremarkable. No ductal dilation. Spleen: Unremarkable. No splenomegaly. Adrenals: Unremarkable. No mass. Kidneys and ureters: Interval development of mild left hydronephrosis and hydroureter secondary to a 3 mm distal ureteral calculus. Additional nonobstructing left renal calculus is present. Simple right appearing renal cysts are present, no follow-up is needed. No right hydronephrosis. Stomach and bowel: There are surgical changes of the colon. No obstruction. No mucosal thickening. PELVIS: Appendix: No findings to suggest acute appendicitis. Bladder: Unremarkable. No stones. Reproductive: Nonspecific prostate gland enlargement. ABDOMEN and PELVIS: Intraperitoneal space: Unremarkable. No free air. No significant fluid collection. Bones/joints: No acute fracture. No dislocation. There is a S shaped scoliosis of the thoracic spine. Moderate degenerative changes of both hips. Soft tissues: Small bilateral fat-containing inguinal hernias. Vasculature: Unremarkable. No abdominal aortic aneurysm. Lymph nodes: Unremarkable. No enlarged lymph nodes. IMPRESSION: 1. Interval development of mild left hydronephrosis and hydroureter secondary to a 3 mm distal ureteral calculus. 2. Nonspecific prostate gland enlargement. 3. Additional nonobstructing left renal calculus is present. Electronically signed by: Esmer Gaitan MD 06/02/25 00:28 AM PG Care Time/CCT Total # of Minutes Spent Total Time Spent with Patient: Total time spent is greater than 50% in coordination of care (as documented) at patient's floor/unit and/or counseling patient: Coding Level of Care Code 68511 INT INP/OBS CARE 3/75MIN Diagnoses Hydronephrosis with urinary obstruction due to ureteral calculus N13.2 NATHAN (acute kidney injury) N17.9 Hypertension I10 Anxiety F41.9
[2025-06-02] MEDS ORDERED: ALBUTEROL HFA 8 GM INHALER INH PRN (02:52)
[2025-06-02] MEDS ORDERED: ZOLPIDEM TARTRATE 5 MG TAB PO PRN (02:52)
[2025-06-02 03:19] LABS: Magnesium 1.7 mg/dl (1.7-2.4)
[2025-06-02] MEDS: LACTATED RINGER'S 1,000 ML IV SCH (03:27)
[2025-06-02] MEDS: MoRPHine SULFATE 2 MG/ML CARP IV PRN ×2 (03:41→11:51)
[2025-06-02] MEDS: ACETAMINOPHEN 500 MG TAB PO PRN (08:13)
[2025-06-02] MEDS: FAMOTIDINE 40 MG TABLET PO SCH (08:34)
[2025-06-02] MEDS: DOCUSATE SODIUM/SENNA 50/8.6MG TAB PO SCH (08:34)
[2025-06-02] MEDS: AZELASTINE HCL 0.1% NASAL 200 SPRAYS/27,400 MCG BTL SCH (08:34)
[2025-06-02] MEDS: TAMSULOSIN HCL 0.4 MG CAP PO SCH (08:34)
[2025-06-02] MEDS: POLYETHYLENE (MIRALAX) 17 GM PACK PO SCH (08:36)
[2025-06-02 10:39] LABS: Anion Gap 4.0 (3-11); Blood Urea Nitrogen 22.0 mg/dl (6-23); Calcium 8.3 mg/dl (8.6-10.3); Carbon Dioxide 27.0 mmol/L (21-32); Chloride 106.0 mmol/L (98-107); Creatinine Clr Calc Pharmacy 57.6 ml/min; Glucose 96.0 mg/dl (70-99(Fasting)); Potassium 4.2 mmol/L (3.5-5.1); Sodium 137.0 mmol/L (136-145)
--- NOTE | 2025-06-02 13:11 | Urology Consultation ---
Date of Consultation June 02, 2025 Assessment & Plan (1) Hydronephrosis with urinary obstruction due to ureteral calculus: (2) NATHAN (acute kidney injury): (3) Fever: (4) Chills: (5) Crohn disease: (6) Aortic root dilatation: (7) Peyronie's disease: (8) Erectile dysfunction: (9) H/O colectomy: Plan Patient with new onset of severe stone discomfort bother flank pain and issues. Found to have obstructing left ureteral stone at the distal ureter measuring approximately 3 mm in size. Patient had previously been following with Dr. Mcguire for ED issues with issues with curvature of the penis. Patient independently assessed, examined, interviewed, and evaluated. Patient's vitals and labs were all reviewed. Pertinent values in the HPI and plan section. Imaging was reviewed interpreted by myself. Agree with read. Vitals were reviewed. Discussed findings extensively with patient and family. Reviewed with nurse practitioner as well as consulting physicians/team. Patient's complicated medical and surgical history was reviewed and summarized above. Patient's surgical, medical, social, and family history were all reviewed with pertinent values as above. Discussed patient's current diagnosis as well as concerns and issues. Reviewed different options moving forward. Discussed potential risks and benefits as well as possible options and concerns. Reviewed potential surgical options and interventions. Discussed potential issues and concerns related to intervention. Risk and benefits were discussed extensively with patient and any available family. Discussed potential risks related to anesthesia. Discussed risks of bleeding infection and injury. Discussed options for conservative measure and maximum expulsion medical therapy and symptom controlled. Discussed ESWL. Discussed Ureteroscopy with extraction and/or laser lithotripsy. Risks and benefits were discussed. Stone free rates were also discussed as well as possibility of multiple procedures. Ureteral stents were discussed as well as post-operative issues and pain management. All questions were answered. Reviewed extensively observation and maximum expulsion therapy. Discussed options moving forward. Did discuss possible options for intervention. Has had mild improvement of creatinine now down to 2.01. Was 2.06 last night. White count and hemoglobin have remained stable. Patient currently not experiencing severe fevers or other major issues. Extensively reviewed options. Patient's imaging was thoroughly reviewed interpreted by myself. Does have signs of hydronephrosis on the left with perinephric stranding. Has small obstructing stone in the distal ureter. Plan to observe. Patient developed severe issues with fever intractable pain severe nausea and vomiting or worsening kidney issues would consider possible urgent intervention. Patient has high likelihood of spontaneous passage. Will plan to monitor Patient's pain issues have decreased but still has severe episodes at times. Major issue at home was inability to take [id number] pain meds due to his Crohn's disease. Will plan to continue with supportive care recommend continued utilization of medication as needed for pain control as well as tamsulosin for possible stone passage. Will plan to have patient monitor for now with diet and hydration. Will plan to reassess patient tomorrow if stone has not yet passed at that point would likely need to recheck imaging and consider possible intervention on stone. Patient was agreeable with this. Will plan to monitor Patient's complicated medical and surgical history was reviewed and summarized a noemy all imaging and labs were reviewed with interpretation by myself as above. Vitals reviewed patient currently stable. History of Present Illness Attending Physician: Gale Mooney MD History of Present Illness New consultation for patient with stone, discomfort, obstruction, and ill feelings. Patient developed sudden onset of pain into flank going down and radiating into groin and back in waves comes and goes. Can be severe at times. Patient has previously been. Has history of ADD issues with issues with curvature. Patient has significant increase in pain and discomfort. Patient was evaluated in the ER found to have obstructing 3 mm stone left side has significant hydronephrosis. Had developed NATHAN. Patient has been having significant pain and discomfort. Creatinine has mildly improved with most recent now 2.01. Patient has previously had PSA checked which was 1.049. Hemoglobin is within normal range at 10.7. White count 10.61. Discussed and reviewed patient's family history for any history of stone disease. Also, discussed patient's medical surgery history especially related to any history of urinary issues or stone disease. Patient was admitted and is undergoing observation. Patient has chronic comorbidities with significant GI related issues with history of Crohn's and inflammatory bowel disease. Patient currently vital signs stable. With temp 36.8 respirations 18 pulse 88 blood pressure 150/79 and oxygenating 96% on room air Allergies Allergy/AdvReac Type Severity Reaction Status Date / Time Iodinated Contrast Media Allergy Unknown Difficulty Verified 06/01/25 08:32 Breathing Home Medications Medication Instructions Recorded Confirmed Type cyanocobalamin (vitamin B-12) 0 mcg subcut MONTHLY 05/28/19 06/02/25 History 1,000 mcg/mL injection kit inhalational spacing device #1 ea 10/18/19 05/30/25 Rx (LiteAire MDI Chamber) lorazepam 1 mg tablet 1 mg PO BID PRN anxiety #60 tabs 10/30/24 06/02/25 Rx losartan 100 mg tablet 100 mg PO DAILY #90 tabs 10/30/24 06/02/25 Rx famotidine 40 mg tablet 40 mg PO DAILY #90 tabs 02/07/25 06/02/25 Rx infliximab-dyyb 100 mg intravenous 10 mg IV .10mg/kg Q 5 weeks 05/10/25 06/02/25 History solution (Inflectra) albuterol sulfate 90 mcg/actuation 0 inh inhalation UD PRN shortness 05/26/25 06/02/25 History aerosol inhaler (Ventolin HFA) of breath or wheezing azelastine 137 mcg (0.1 %) nasal 0 spray intranasal DAILY 05/26/25 06/02/25 History spray lansoprazole 30 mg capsule,delayed 30 mg PO DAILY 05/26/25 06/02/25 History release (Prevacid) mesalamine 1.2 gram tablet,delayed 1.2 g PO UD 05/26/25 06/02/25 History release (Lialda) zolpidem 10 mg tablet (Ambien) 0 mg PO HS PRN insomnia 05/26/25 06/02/25 History ondansetron 4 mg disintegrating 4 mg PO Q6H PRN nausea and 05/28/25 06/02/25 Rx tablet vomiting #30 tabs sildenafil (pulm.hypertension) 20 20 mg PO .as needed 06/01/25 06/02/25 History mg tablet (Revatio) Patient History Medical History Acute Crohn's disease History of squamous cell carcinoma left patel COVID-19 virus infection Pectus excavatum repair Surgical History S/P hernia surgery H/O colectomy S/P partial colectomy Family History Father Hypertension PMR (polymyalgia rheumatica) Mother Hypertension Daughter Sinusitis Acute lymphoblastic leukemia (ALL) Grandfather (Paternal) Myocardial infarction Grandfather (Maternal) Heart disease Brother Hypertension Brother No problems noted. 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 How many Children do You have: 1 Other Information That Helps Us Care for You: No Feels Safe at Home: Yes Safety Concerns: Feels Safe At This Time Childhood Exposure to Second-Hand Smoke: No Diet: regular caffeine: Yes during the past year weight has: remained stable Dental Care, Regularly: Yes Physical Activity Frequency: Daily Seatbelt Use: always Sunscreen Use: Yes Assistive Devices: CPAP Assistive Devices Comment: cpap Review of Systems Review of Systems: All systems reviewed & are unremarkable except as noted in HPI & below Physical Exam Physical Exam: General: Alert and oriented x 3 in no acute distress. Patient is well nourished and well kept. HEENT: Normocephalic Atraumatic. Inspection normal. Cranial Nerves 2-12 Grossly intact. Nares are clear. Neck is supple. Normal inspection of face. Normal inspection of neck. Neurologic: No deficits on inspection. Baseline for motor function and sensory. Psychologic: Normal affect. Respiratory: Nonlabored. No use of accessory muscles. No tachypnea or dyspnea. Cardiovascular: No tachycardia Skin: [place] and Dry. No rashes or visible lesions. Extremities: Moving without issues. No motor deficits on inspection Lymphatics: No edema Abdomen: Soft Non-distended. No rebound or guarding. Results & Data Vital Signs (Past 12 Hours) Vital Signs Temp Pulse Pulse Resp BP BP Pulse Ox 06/02/25 08:16 36.8 C 88 18 150/79 H 96 06/02/25 06:15 37.2 C 93 H 148/82 H 96 06/02/25 03:51 08/23/25 03:30 36.4 C L 93 H 18 187/106 H 97 06/02/25 03:15 36.4 C L 93 H 18 187/106 H 97 06/02/25 02:30 92 H 18 145/101 H 93 06/02/25 01:30 91 H 18 148/92 H 95 O2 Del Method 06/02/25 08:16 Room Air 06/02/25 06:15 CPAP 06/02/25 03:51 Room Air, CPAP 06/02/25 03:30 Room Air 06/02/25 03:15 Room Air 06/02/25 02:30 Room Air 06/02/25 01:30 Room Air PG Care Time/CCT Total # of Minutes Spent Total Time Spent with Patient: Total time spent is greater than 50% in coordination of care (as documented) at patient's floor/unit and/or counseling patient: Coding Level of Care Code 18400 IN/OBS CONSULT LVL 5,80M Diagnoses Hydronephrosis with urinary obstruction due to ureteral calculus N13.2 NATHAN (acute kidney injury) N17.9 Fever R50.9 Fever type: unspecified Chills R68.83 Crohn disease K50.90 Aortic root dilatation I77.810 Peyronie's disease N48.6 Erectile dysfunction N52.9 H/O colectomy Z90.49 (3) Fever Fever type: unspecified Qualified Code(s): R50.9 - Fever, unspecified
[2025-06-02] MEDS: ONDANSETRON INJ 2 MG/ML 2 ML VIAL IV PRN ×2 (14:23→20:11)
--- NOTE | 2025-06-02 18:09 | Communication Note ---
Date of Service: June 02, 2025 Admitted this AM 3mm obstructing distal ureteral stone NATHAN Crohn's discussed with Dr. Cruz and examined patient poss cysto/stent tomorrow if not passed cont IVF - increase to 150/h, strain urine, flomax, pain control Cr still 2.0, check AM BMP, avoiding toradol/nsaid for now npo p MN
[2025-06-02] MEDS ORDERED: HYDROmorphone INJ 0.5 MG/0.5 ML SYR IV PRN (19:42)
[2025-06-02] MEDS: HYDROmorphone INJ 0.5 MG/0.5 ML SYR IV PRN (20:11)
[2025-06-02] MEDS: LORazepam 1 MG TAB PO PRN (22:32)
[2025-06-03] MEDS: PROCHLORPERAZINE 5 MG in SYRINGE 4 ML IV PRN (01:30)
[2025-06-03 06:51] LABS: Hematocrit (blood only) 28.9 % (42.0-52.0); Hemoglobin 9.9 g/dl (14.0-18.0); Mean Corpuscular Hemoglobin 29.3 pg (25.0-34.0); Mean Corpuscular Volume 85.5 fL (80.0-100.0); Platelet Count 227 K/uL (130-400); RDW Standard Deviation 40.9 fL (36.4-46.3); Red Blood Count 3.38 M/uL (4.70-6.10); White Blood Count 8.12 K/ul (4.8-10.8)
[2025-06-03 07:16] LABS: Anion Gap 5.0 (3-11); Blood Urea Nitrogen 21.0 mg/dl (6-23); Calcium 8.6 mg/dl (8.6-10.3); Carbon Dioxide 27.0 mmol/L (21-32); Chloride 104.0 mmol/L (98-107); Creatinine Clr Calc Pharmacy 62.6 ml/min; Glucose 98.0 mg/dl (70-99(Fasting)); Potassium 4.3 mmol/L (3.5-5.1); Sodium 136.0 mmol/L (136-145)
--- NOTE | 2025-06-03 10:44 | Urology Progress Note ---
Date of Service June 03, 2025 Assessment & Plan (1) Hydronephrosis with urinary obstruction due to ureteral calculus: (2) NATHAN (acute kidney injury): (3) Crohn disease: Admission and Anticipated Discharge Date Admission Date: June 02, 2025 Subjective Patient admitted with stone and discomfort. Patient is afebrile. Has been undergoing maximum expulsion therapy with oral medications, IV medications, IV fluids, and oral intake. Has not had major improvement. Is still dealing with severe episodes of flank pain and discomfort on the left side. Has somewhat increased in severity at times. Has not developed severe vomiting or other issues. Has not experienced fever or chills. Has been tolerating oral medications. Is tolerating fluids. Has noticed some frequency and urgency. Has not had severe pain in the back and flank. Does have occasional burning and irritation. No severe episodes or major changes. Patient does not believe the passed a stone. Has not passed a large amount of blood or debris that may be the stone. Review of Systems Review of Systems: All systems reviewed & are unremarkable except as noted in HPI & below Physical Exam Physical Exam: General: Alert in no acute distress. HEENT: Normocephalic Atraumatic. Inspection normal. Cranial Nerves 2-12 Grossly intact. Normal inspection of face. Normal inspection of neck. Psychologic: Normal affect. Respiratory: Nonlabored. No use of accessory muscles. No tachypnea or dyspnea. Cardiovascular: No tachycardia Skin: [place] and Dry. No rashes or visible lesions. Extremities/Lymphatics: No edema Abdomen: Soft Non-distended. No rebound or guarding. Results & Data Vital Signs (Past 12 Hours) Vital Signs Temp Pulse Resp BP Pulse Ox O2 Del Method 06/03/25 07:02 36.8 C 90 18 129/77 95 CPAP 06/02/25 22:48 37.1 C 99 H 18 167/98 H 95 Room Air PG Care Time/CCT Total # of Minutes Spent Total Time Spent with Patient: Total time spent is greater than 50% in coordination of care (as documented) at patient's floor/unit and/or counseling patient: Prolonged Care Time Patient with obstructing left stone. Increasing flank pain and bother. Overall worsening without major relief of symptoms. Patient has not passed blood or other debris that would be possible stone. Patient had significant NATHAN which has only mildly improved. Most recent creatinine is 1.85. White count is now at 8.12. Reviewed extensively options moving forward. Discussed patient's ongoing issues with discomfort discussed episodes of significant pain. Discussed possible worsening obstruction. Also discussed patient's persistent NATHAN with only mild improvement. Extensively reviewed options. Discussed possible infections and other issues. Discussed risk related to anesthesia. Discussed options for conservative measure and maximum expulsion medical therapy and symptom controlled. Discussed ESWL. Discussed Ureteroscopy with extraction and/or laser lithotripsy. Risks and benefits were discussed. Stone free rates were also discussed as well as possibility of multiple procedures. Ureteral stents were discussed as well as post-operative issues and pain management. All questions were answered. Risks and benefits discussed at length for procedure. These include bleeding, infection, injury to surrounding tissues or organs, and risks associated with anesthesia. Patient states understanding and agrees to proceed. Will sign consent and proceed. Plan for cystoscopy with possible left ureteroscopy and stone treatment and stent placement Coding Level of Care Code 92749 SUB INP/OBS CARE 3/50MIN Diagnoses Hydronephrosis with urinary obstruction due to ureteral calculus N13.2 NATHAN (acute kidney injury) N17.9 Crohn disease K50.90
--- NOTE | 2025-06-03 11:06 | Anesthesiology Consultation ---
Date of Service June 03, 2025 Assessment & Plan Chart Review Chart Review: Acceptable Risk for Surgery and Patient NOT seen in Pre Admission Testing Consults Requested none ASA [id number] Proposed Anesthesia Anesthesia Type: MAC History Surgery Operation Date: 06/03/25 12:00 Proposed Procedures p Cystoscopy - Bandar Cruz DO Height/Weight Height: 6 ft 5 in Weight: 114.5 kg Allergies Allergy/AdvReac Type Severity Reaction Status Date / Time Iodinated Contrast Media Allergy Unknown Difficulty Verified 06/01/25 08:32 Breathing Medications Home Medications Medication Instructions Recorded Confirmed Last Taken cyanocobalamin (vitamin B-12) 0 mcg subcut MONTHLY 05/28/19 06/02/25 Unknown 1,000 mcg/mL injection kit inhalational spacing device #1 ea 10/18/19 05/30/25 Unknown (LiteAire MDI Chamber) lorazepam 1 mg tablet 1 mg PO BID PRN anxiety #60 tabs 10/30/24 06/02/25 Unknown losartan 100 mg tablet 100 mg PO DAILY #90 tabs 10/30/24 06/02/25 Unknown famotidine 40 mg tablet 40 mg PO DAILY #90 tabs 02/07/25 06/02/25 Unknown infliximab-dyyb 100 mg intravenous 10 mg IV .10mg/kg Q 5 weeks 05/10/25 06/02/25 Unknown solution (Inflectra) albuterol sulfate 90 mcg/actuation 0 inh inhalation UD PRN shortness 05/26/25 06/02/25 Unknown aerosol inhaler (Ventolin HFA) of breath or wheezing azelastine 137 mcg (0.1 %) nasal 0 spray intranasal DAILY 05/26/25 06/02/25 Unknown spray lansoprazole 30 mg capsule,delayed 30 mg PO DAILY 05/26/25 06/02/25 Unknown release (Prevacid) mesalamine 1.2 gram tablet,delayed 1.2 g PO UD 05/26/25 06/02/25 Unknown release (Lialda) zolpidem 10 mg tablet (Ambien) 0 mg PO HS PRN insomnia 05/26/25 06/02/25 Unknown ondansetron 4 mg disintegrating 4 mg PO Q6H PRN nausea and 05/28/25 06/02/25 Unknown tablet vomiting #30 tabs sildenafil (pulm.hypertension) 20 20 mg PO .as needed 06/01/25 06/02/25 Unknown mg tablet (Revatio) Active Medications Generic Name Dose Route Start Last Admin Trade Name Freq PRN Reason Stop Dose Admin Acetaminophen 1,000 mg 06/02/25 02:52 06/03/25 07:38 Acetaminophen 500 Mg Tab PO 07/02/25 02:51 1,000 mg TID PRN Administration pain or fever Azelastine HCl 0 sprays 06/02/25 09:00 06/03/25 07:39 Azelastine Hcl 0.1% Nasal 200 Sprays/27,400 Mcg Btl NA 07/02/25 08:59 2 sprays DAILY PHONG Administration Famotidine 40 mg 06/02/25 09:00 06/03/25 07:38 Famotidine 40 Mg Tablet PO 07/02/25 08:59 40 mg DAILY PHONG Administration Hydromorphone HCl 0.5 mg 06/02/25 19:42 06/03/25 08:53 Hydromorphone Inj 0.5 Mg/0.5 Ml Syr IV 06/16/25 19:41 0.5 mg Q3H PRN Administration Pain (6,7,8,9,10) Lactated Ringer's 1,000 mls @ 150 mls/hr 06/02/25 02:52 06/03/25 07:39 Lr IV 06/05/25 02:51 125 mls/hr .Q6H40M PHONG Administration Prochlorperazine 5 mg/ Syringe 5 mls @ 5 mls/min 06/02/25 19:42 06/03/25 01:30 IV 07/02/25 19:41 5 mls/min Q6H PRN Administration Nausea And Vomiting Lorazepam 1 mg 06/02/25 02:52 06/02/25 22:32 Lorazepam 1 Mg Tab PO 07/02/25 02:51 1 mg BID PRN Administration anxiety Miscellaneous 1 each 06/02/25 08:00 06/03/25 08:53 (Mesalamine [Lialda] 1.2 Gram Tablet,Delayed Release)~Order Awaiting Action N/A 07/02/25 07:59 Not Given QS PHONG Ondansetron HCl 4 mg 06/02/25 19:43 06/02/25 20:11 Ondansetron Inj 2 Mg/Ml 2 Ml Vial IV 07/02/25 02:51 4 mg Q4H PRN Administration Nausea And Vomiting Pantoprazole Sodium 40 mg 06/02/25 09:00 06/03/25 07:38 Pantoprazole 40 Mg Tab PO 07/02/25 08:59 40 mg DAILY POHNG Administration Polyethylene Glycol 17 gm 06/02/25 09:00 06/03/25 08:53 Polyethylene (Miralax) 17 Gm Pack PO 07/02/25 08:59 Not Given BID PHONG Senna/Docusate Sodium 1 tab 06/02/25 09:00 06/03/25 07:39 Docusate Sodium/Senna 50/8.6mg Tab PO 07/02/25 08:59 1 tab BID PHONG Administration Tamsulosin HCl 0.4 mg 06/02/25 09:00 06/03/25 07:39 Tamsulosin Hcl 0.4 Mg Cap PO 07/02/25 08:59 0.4 mg QAM PHONG Administration Past Medical History Medical History Acute Crohn's disease History of squamous cell carcinoma left patel COVID-19 virus infection Pectus excavatum repair Anemia NATHAN ? Hx/o Pulm. HTN Hydronephrosis Obese HTN Anxiety Gerd Exercise / Class Metabolic Activity II 4-5 Yardwork/Stairs/Walk up hill Past Family History Family History Father Hypertension PMR (polymyalgia rheumatica) Mother Hypertension Daughter Sinusitis Acute lymphoblastic leukemia (ALL) Grandfather (Paternal) Myocardial infarction Grandfather (Maternal) Heart disease Brother Hypertension Brother No problems noted. Denies family history of Colon cancer Ovarian cancer Prostate cancer Breast cancer Past Surgical History Surgical History S/P hernia surgery H/O colectomy S/P partial colectomy Past Anesthesia History No Hx of Anesthesia Complications and No Family Hx of Anesthesia Complications History of PONV No Hx of PONV and No Hx of Motion Sickness Social History Smoking Status: Never smoker Do You Dip or Chew Tobacco: No Hx Alcohol Use: No Hx Substance Use: No Physical Exam Vital Signs Last Vital Signs Temp 36.8 C 06/03/25 07:02 Pulse 90 06/03/25 07:02 Resp 18 06/03/25 07:02 BP 129/77 06/03/25 07:02 Pulse Ox 95 06/03/25 07:02 O2 Del Method CPAP 06/03/25 07:02 Testing Laboratory Results 06/03/25 06:01 06/03/25 06:01 Urine Color Yellow 06/01/25 23:14 Urine Appearance Clear (Clear) 06/01/25 23:14 Urine pH 5.0 (4.5-7.5) 06/01/25 23:14 Ur Specific [place] 1.024 (1.000-1.030) 06/01/25 23:14 Urine Protein Negative (Negative) 06/01/25 23:14 Urine Glucose (UA) Negative (Negative) 06/01/25 23:14 Urine Ketones 1+ (Negative) H 06/01/25 23:14 Urine Nitrite Negative (Negative) 06/01/25 23:14 Ur Leukocyte Esterase Negative (Negative) 06/01/25 23:14 Electrocardiogram Date: 05/26/25 Findings: + ST @ Chest X-Ray Date: 05/26/25 Findings: + NAD Chronic interstitial lung opacities + atelectasis Echocardiogram Date: 08/06/22 EF: 55% LV Function: normal RWMA: + none Other Findings: + diastolic dysfunction (Grade 1) Valvular Disease: + no significant valvular disease mildly dilated Ao root
[2025-06-03] MEDS ORDERED: PROPOFOL IV EMULSION 10 MG/ML 20 ML VIAL IV ONE (12:20)
[2025-06-03] MEDS ORDERED: MIDAZOLAM HCL 1 MG/ML 2ML VIAL ONE (12:21)
[2025-06-03] MEDS ORDERED: PROMETHAZINE HCL 6.25 MG in SODIUM CHLORIDE 0.9% 50 ML IV PRN (12:33)
[2025-06-03] MEDS ORDERED: ONDANSETRON INJ 2 MG/ML 2 ML VIAL IV PRN (12:33)
[2025-06-03] MEDS ORDERED: NALOXONE HCL 0.4 MG/1 ML VIAL/CARP IV PRN (12:33)
[2025-06-03] MEDS ORDERED: FLUMAZENIL 0.1 MG/1 ML 10 ML VIAL IV PRN (12:33)
[2025-06-03] MEDS ORDERED: ATROPINE SULFATE 0.1 MG/ML 10ML SYR IV PRN (12:33)
[2025-06-03] MEDS ORDERED: LABETALOL HCL IV 5 MG/ML 20ML IV ONE (12:55)
--- NOTE | 2025-06-03 13:11 | Operative Report ---
PG Post Operative Report Pre & Post Diagnosis Operation Date: 06/03/25 12:00 Pre-Op Diagnosis: Obstructing Renal Stone Post-Op Diagnosis: Obstructing Renal Stone I identified the patient and participated in the time-out.: Yes Procedure Operation Date: 06/03/25 12:00 Actual Procedures Cystoscopy with Left Retrograde Pyelogram, Left Stent Insertion, Left Ur eteroscopy, Left Ureteral Dilation(Left) - Bandar Cruz DO Surgeon Bandar Cruz, II, DO Digital Account Director None Estimated Blood Loss 1 Findings Consistent with Post-Op Diagnosis Stone at UVJ impacted and obstructing the os of the ureter. Stone was displaced and the ureter was dilated. With dilation stone passed into the bladder Specimens None Drains 6 Fr Multilength Anesthesia Type General Complications none Disposition Disposition: Recovery Room Indications Patient with bothersome stones. Risks and benefits discussed at length. Description of Procedure Patient was consented and brought back to the operating room. Patient was placed under anesthesia in the supine position and moved to the dorsal lithotomy position. Patient was prepped and draped in the regular sterile fashion. A time out was completed. A 30degree Cystoscope was placed into the bladder and the entire bladder was examined. The UO's were identified. The stone appeared to be at the lobe. The UO was cannulized with a catheter and a retrograde pyelogram was completed. A wire was then placed. The wire was difficult to advance due to the location of the stone at this point it was decided to try to extract the stone. The Rigid ureteroscope was taken into the ureter. The stone was identified. It appeared to be somewhat impacted at the UO. Because of this the stone was displaced proximally. The UO was dilated for a area of stricture at the os. After dilation the stone appeared to pass into the bladder. It appeared to open multiple small fragments. All of which were too small to grasp. The rigid scope was then taken into the ureter and advanced to the mid/proximal ureter. Hydronephrosis was noted but no sign of other obstruction or major issue. The area of dilation was inspected no major problems or issues. The entire area was once again examined. No residual large fragments or areas of concern were noted. The scope was slowly removed with the wire left in place. Contrast was placed through the scope for a pyelogram to assist in stent placement. The entire ureter was examined as the scope was slowly removed. No obstructions or other areas of concern were noted. With the wire in place, a 6 Fr Double J stent was placed. It was confirmed with fluoroscopy. With the stent in place, the bladder was emptied. The scope was removed. The patient was cleaned, aroused from anesthesia, and transferred to the pacu in stable condition having tolerated the procedure well with no complications. I was present and participated in all aspects of the procedure. The patient will be monitored in the PACU until transferred. Will plan to maintain stent for approximately 1 to 2 weeks will have patient return for follow-up in the office in approximately 2 weeks with imaging with CT scan just prior. Will plan to possibly remove stent for set up for further stone treatment depending on results of imaging I attest to the content of the Intraoperative Record and any orders documented therein. Any exceptions are noted below.
[2025-06-03] MEDS: DIATRIZOATE MEGLUMINE 30% 100ML VIAL INSTIL ONE (13:56)
--- NOTE | 2025-06-03 14:03 | Anesthesiology Progress Note ---
Date of Service June 03, 2025 Anesthesia Post Procedure Vital Signs Vital Signs: Temp Pulse Pulse Resp BP Pulse Ox O2 Del Method 06/03/25 13:35 37.0 C 86 16 132/79 99 Nasal Cannula 06/03/25 13:25 84 20 159/87 H 98 Nasal Cannula 06/03/25 13:15 36.0 C L 86 14 165/90 H 97 Nasal Cannula 06/03/25 07:02 36.8 C 90 18 129/77 95 CPAP 06/02/25 22:48 37.1 C 99 H 18 167/98 H 95 Room Air 06/02/25 16:37 36.8 C 111 H 18 138/75 94 Room Air O2 Flow Rate 06/03/25 13:35 2 06/03/25 13:25 2 06/03/25 13:15 2 06/03/25 07:02 06/02/25 22:48 06/02/25 16:37 Pain Intensity Right Abdomen: Pain Intensity: 7 Transfer of Care Handoff Completed per policy Notes Mental Status: alert / awake / arousable Patient Amnestic to Procedure: Yes Nausea / Vomiting: adequately controlled Pain: adequately controlled Airway Patency, RR, SpO2: stable & adequate BP & HR: stable & adequate Hydration State: stable & adequate Anesthetic Complications: no major complications apparent
[2025-06-03 14:23] VITALS: TEMP 98.8
[2025-06-03 15:02] VITALS: BP 144/80; PULSE 90; RESP 18; O2SAT 95
--- NOTE | 2025-06-03 15:08 | Hospitalist Progress Note ---
Date of Service June 03, 2025 Assessment & Plan (1) Hydronephrosis with urinary obstruction due to ureteral calculus: (2) NATHAN (acute kidney injury): (3) Hypertension: (4) Anxiety: Plan 55yo male with obstructing left renal stone #hydronephrosis with urinary obstruction due to ureteral calculus - patient failed trial of outpatient expulsive therapy. Developed constipation following use of Oxycodone -Maintain NPO for now -IVF - LR at 125mL/hr x 2L -Urine strainer -Pain control with Tylenol, hydromorphone PRN -Bowel regimen with Docusate/Senna BID scheduled, Miralax 17mg po BID scheduled -Zofran PRN nausea -Flomax 0.4mg po qAM -Plan for cystoscopy 06/[address] Cruz - completed this afternoon and small stone was obstructing UVJ and was able to be removed, stent placed. Follow up 1-2 weeks for stent removal #NATHAN - elevation of Cr to 2.06 from last 1.34. Likely pre-renal etiology. 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 with IVF -Cr improved to 1.85 -continue avoid NSAIDS, follow up BMP with primary care #Hypertension -Pain control as above -Hold Losartan one week for NATHAN then resume #Crohns -Continue Mesalamine -Bowel regimen #Anxiety/Mental health -Ativan PRN -Continue Ambien at home dose Admission and Anticipated Discharge Date Admission Date: June 02, 2025 Subjective Stone did not pass overnight, continued to have L sided abdominal pain colickly in nature Nausea and vomiting yesterday, remains nausea but improved Physical Exam 2 Physical Exam: Last 24h vitals reviewed GEN: no acute distress, sitting in bed HEENT: pupils equal, sclerae anicteric, moist MM RESP: normal WOB, CTAB CV: reg no mrg ABD: soft, TTP L side of abdomen without RRG : no gray SKIN: warm and dry, no generalized rashes NEURO: AOx person, place, and situation. Face symmetric, speech normal, moves 4 ext spontaneously and equally Results & Data Results & Data Vital Signs (Past 12 Hours) Vital Signs Temp Pulse Pulse Resp BP Pulse Ox O2 Del Method 06/03/25 14:40 37.1 C 90 18 144/80 H 95 Room Air 06/03/25 14:10 37.1 C 91 H 17 143/82 H 98 Room Air 06/03/25 13:40 37.1 C 89 18 153/85 H 98 Room Air 06/03/25 13:35 37.0 C 86 16 132/79 99 Nasal Cannula 06/03/25 13:25 84 20 159/87 H 98 Nasal Cannula 06/03/25 13:15 36.0 C L 86 14 165/90 H 97 Nasal Cannula 06/03/25 07:02 36.8 C 90 18 129/77 95 CPAP O2 Flow Rate 06/03/25 14:40 06/03/25 14:10 06/03/25 13:40 06/03/25 13:35 2 06/03/25 13:25 2 06/03/25 13:15 2 06/03/25 07:02 Laboratory Results 06/03/25 06:01 06/03/25 06:01 PG Care Time/CCT Total # of Minutes Spent Total Time Spent with Patient: Total time spent is greater than 50% in coordination of care (as documented) at patient's floor/unit and/or counseling patient: Coding Level of Care Code 73651 SUB INP/OBS CARE 2MIN Diagnoses Hydronephrosis with urinary obstruction due to ureteral calculus N13.2 NATHAN (acute kidney injury) N17.9 Hypertension I10 Anxiety F41.9
--- NOTE | 2025-06-03 15:11 | Discharge Summary ---
Discharge Summary Date of Service June 03, 2025 Principal Dx & Hospital Course #1 = Principal Diagnosis (1) Hydronephrosis with urinary obstruction due to ureteral calculus: (2) NATHAN (acute kidney injury): (3) Hypertension: (4) Anxiety: Plan 55yo male with obstructing left renal stone #hydronephrosis with urinary obstruction due to ureteral calculus - patient failed trial of outpatient expulsive therapy. Developed constipation following use of Oxycodone constipation treated and resolved failed trial of passing stone in hospital with IVF, flomax. Had a lot of nausea/vomiting and left sided abdominal pain cystoscopy 06/[address] Cruz - completed this afternoon and small stone was obstructing UVJ and was able to be removed, stent placed. following procedure felt comfortable, nausea resolved follow up 1-2 weeks for stent removal #NATHAN - elevation of Cr to 2.06 from last 1.34. Likely pre-renal etiology. Patient reports he has been unable to keep down food or liquids for the last day [employer]. -treated with IVF -Cr improved to 1.85 -continue avoid NSAIDS and hold losartan 1 week, follow up BMP with primary care #Hypertension -Hold Losartan one week for NATHAN then resume #Crohns -Continue Mesalamine -Bowel regimen #Anxiety/Mental health -Ativan PRN -Continue Ambien at home dose Admission HPI Per Admitting Provider Harjit Harris is a 55yo male with history of HTN, Crohns colitis with multiple prior surgeries presenting with left flank pain. 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 Patient developed sharp, stabbing pain on the left flank and was diagnosed with a kidney stone. He was started on Oxycodone, Flomax and Toradol and has been taking these with no improvement. He reports severe constipation which dev eloped after starting the Oxycodone. Patient has had significant nausea, vomiting and PO intolerance No additional complaints - no fever, chills, urinary complaints Discharge Exam Last 24h vitals reviewed GEN: no acute distress, sitting in bed HEENT: pupils equal, sclerae anicteric, moist MM RESP: normal WOB, CTAB CV: reg no mrg ABD: soft, TTP L side of abdomen without RRG : no gray SKIN: warm and dry, no generalized rashes NEURO: AOx person, place, and situation. Face symmetric, speech normal, moves 4 ext spontaneously and equally Discharge Plan Discharge Items Patient Disposition: Home - Self-Care Reason For Visit: OBSTRUCTING RENAL STONE Discharge Diagnosis: Obstructing ureterolithiasis, NATHAN Condition on Discharge: Good Activity: Resume your previous activity Non-emergency contact: Primary Care Provider and Urologist Call non-emergency contact if: you have any medication questions, your symptoms worsen and you have a fever Follow-up/Referrals: Nanette Melo MD [Primary Care Provider] - Bandar Cruz DO [Physician] - Diet: Regular Addtl Attending Provider Instructions: You were treated for small obstructing kidney stone in L ureter It was stuck at the end of the ureter, so the stone came out and broke into very small fragments during the procedure A urinary stent was placed to help the ureter heal Follow up with Dr. Cruz in 1-2 weeks stent removal You had mild acute kidney injury that is improving - related to dehydration, obstructing stone -avoid nsaids for a week or two (ibuprofen/motrin, naproxen/aleve etc). Acetaminophen is safe for your kidneys -hold your losartan for a week to let your kidneys recover -follow up in primary care to recheck labs It was a pleasure taking care of you in the hospital Gale Mooney MD Pending Studies at Discharge: No Stand-Alone Forms: My [facility], Pain - Opioid Pain Management, Smok ing Cessation Medications and DC Order Prescriptions: New tamsulosin 0.4 mg Capsule 0.4 mg PO QAM Qty: 14 0RF oxybutynin chloride 5 mg tablet 5 mg PO Q6H PRN (Reason: bladder spasms) Qty: 20 0RF phenazopyridine [Pyridium] 200 mg tablet 200 mg PO Q8H PRN (Reason: bladder pain) Qty: 10 0RF oxycodone 5 mg tablet 5 mg PO Q4H PRN (Reason: pain) Qty: 10 0RF Continued (DME) [facility] [employer] See Rx Instructions .ROUTE .MEDSUPPLY Qty: 1 0RF Rx Instructions: As directed lorazepam 1 mg tablet 1 mg PO BID PRN (Reason: anxiety) Qty: 60 1RF Patient Comments: 05/26- last filled 10/30 30 day supply famotidine 40 mg tablet 40 mg PO DAILY Qty: 90 3RF Inflectra 100 mg recon soln 10 mg IV .10mg/kg Q 5 weeks Patient Comments: 05/26- no fill history unable to verify Rx Instructions: 10mg/kg every 5 weeks cyanocobalamin (vitamin B-12) 1,000 mcg/mL kit 0 mcg SQ MONTHLY Patient Comments: 05/26- no fill history unable to verify sildenafil (pulm.hypertension) [Revatio] 20 mg tablet 20 mg PO .as needed Patient Comments: 05/26- last filled 10/03/24 Rx Instructions: Take 1 hour before planned intercourse on empty stomach. Can titrate up to 100 mg at separate times. lansoprazole [Prevacid] 30 mg capsule,delayed release(DR/EC) 30 mg PO DAILY Rx Instructions: TAKE 1 CAPSULE DAILY azelastine 137 mcg (0.1 %) spray,non-aerosol 0 spray intranasal DAILY Patient Comments: last filled 03/02 30 day supply Rx Instructions: SPRAY 2 SPRAYS INTRANASALLY DAILY zolpidem [Ambien] 10 mg tablet 0 mg PO HS PRN (Reason: insomnia) Patient Comments: 05/26- no fill history unable to verify albuterol sulfate [Ventolin HFA] 90 mcg/actuation HFA aerosol inhaler 0 inh inhalation UD PRN (Reason: shortness of breath or wheezing) Patient Comments: 05/26- no fill history unable to verify Rx Instructions: 1-2 INH 4-6 PRN; mesalamine [Lialda] 1.2 gram tablet,delayed release (DR/EC) 1.2 g PO UD Patient Comments: 05/26- last filled 01/05 90 day supply Rx Instructions: 2 tablets BID ondansetron 4 mg tablet,disintegrating 4 mg PO Q6H PRN (Reason: nausea and vomiting) Qty: 30 0RF Held losartan 100 mg tablet 100 mg PO DAILY Qty: 90 3RF Hold Instructions: Resume on 06/10/25. Discharge Orders: Discharge Order (Routine); Ordered 06/03/25 Ordered By: Gale Richards/Other Patient Handouts: Having a Ureteral Stent Admission Data Admit Date/Time: 06/02/25 01:21 Attending Provider: Gale Mooney Admit Provider: Madonna Madrid Primary Care Provider: Nanette Melo Other Providers: Madonna Madrid; Bandar Cruz Hospital Stay Data Consultations 06/02/25 01:19 ED Decision to Admit Stat 06/02/25 01:21 Consult Urology Routine Procedures Performed Operation Date: 06/03/25 12:00 Actual Procedures p Cystoscopy, Left Retrograde Pyelogram, Stent Insertion, Ureteroscopy, Dilation(Left) - Bandar Cruz, Diagnostic Imagining Performed 06/01/25 22:48 CT abd pelvis wo con Stat 06/03/25 [place] retrograde includes kub Routine Discharge Instructions Given to Patient (Per Discharging Provider) You were treated for small obstructing kidney stone in L ureter It was stuck at the end of the ureter, so the stone came out and broke into very small fragments during the procedure A urinary stent was placed to help the ureter heal Follow up with Dr. Cruz in 1-2 weeks stent removal You had mild acute kidney injury that is improving - related to dehydration, obstructing stone -avoid nsaids for a week or two (ibuprofen/motrin, naproxen/aleve etc). Acetaminophen is safe for your kidneys -hold your losartan for a week to let your kidneys recover -follow up in primary care to recheck labs It was a pleasure taking care of you in the hospital Gale Mooney MD Total Time Total Time Spent Total Time Spent (In Minutes): <30 Coding Level of Care Code 41580 IN/OBS DISCH 30 MIN/LESS Diagnoses Hydronephrosis with urinary obstruction due to ureteral calculus N13.2 NATHAN (acute kidney injury) N17.9 Hypertension I10 Anxiety F41.9
--- NOTE | 2025-06-04 07:36 | Fluoroscopy Report ---
[place] retrograde includes kub CLINICAL HISTORY: CYSTO IN OR COMPARISON STUDY: CT 06/01/2025 FLUOROSCOPY TIME: 50.1 seconds FLUOROSCOPY IMAGES: 2 EXPOSURE DOSE: 19.70 mGy FINDINGS: Status post placement of a left ureteral stent which appears to be in satisfactory position ing. No ureteral calculi identified on this exam. IMPRESSION: Fluoroscopic assistance as above. ACT 112: Negative or not required by law. Electronically signed by: Mahesh Javed M.D. 06/04/2025 7:35 AM
== END 2025-06-03 16:58 | disposition home or self-care (01) ==
LOC: ED 21:56 → 3W 21:56 → SUATTDRO 06-02 01:21 → 3W 06-02 02:36 → 3N 06-02 19:32